=== PATIENT | female | born 1975 | race Caucasian/White ===

== ENCOUNTER 2019-09-25 16:27 | Observation (INO) ==
[2019-09-25 16:44] VITALS: BMI 20.5
[2019-09-25] MEDS ORDERED: NS 1000 ML 1,000 ML ONE ×2 (16:45→19:27)
[2019-09-25] MEDS ORDERED: NS 1000 ML 1,000 ML IV ONE ×2 (16:45→19:26)
[2019-09-25] MEDS: ZOFRAN INJ 4 MG VIAL IVP ONE ×2 (16:45→18:45)
[2019-09-25] MEDS ORDERED: ZOFRAN INJ 4 MG VIAL ONE ×2 (16:48→18:31)
--- NOTE | 2019-09-25 17:20 | DR.DIZZY ---
HPI Time seen Time Seen by Provider: 09/25/19 17:16 PCP Primary Care Physician: Randall Foster HPI Comment HPI Comment: PATIENT IS 44YR OLG FEMALE HERE IN ER WITH DIARRHEA, WEAKNESS, FEVER AND POSITIVE TEST. Complaint Chief Complaint Doctor Comments: ABDOMINAL PAIN, DIARRHEA, FEVER, GENERALIZED WEAKNESS. POSITIVE COVID TEST. Chief Complaint:: syncopal episode, COVID +, vomiting, diarrhea COVID-19 Coronavirus risk:travel/contact w/high risk person: Yes Has patient experienced Coronavirus symptoms: Yes Coronavirus symptoms experienced: Fever, Coughing and Shortness of Breath Source History Provided: Patient Mode of Arrival Mode of Arrival: Ambulatory Timing Onset of Chief Complaint: 09/25/19 PMH PMH Past Medical History: Yes Past Medical History: Kidney Stones Past Surgical History: Yes Surgical History: Cholecystectomy, Hysterectomy and Lithotripsy Family History History of Family Medical Conditions: Yes Family Medical History: Diabetes Mellitus, Cancer, Coronary Artery Disease, Sudden Cardiac and Hypertension Social History Do you use any recreational Drugs:: No Travel Risk Coronavirus risk:travel/contact w/high risk person: Yes Has patient experienced Coronavirus symptoms: Yes Coronavirus symptoms experienced: Fever, Coughing and Shortness of Breath Infectious screening In the last 2 months have you had wt loss of >10#?: NO Have you had fever, night sweats or hemotysis?: No Have you traveled outside the country in the last 6 months?: No Isolation: Droplet ROS Review of Systems Constitutional: See HPI, Chills, Fever, Malaise, Weakness and Fatigue Eyes: No Symptoms Reported and See HPI; negative Blurred Vision and Diplopia ENTM: No Symptoms Reported and See HPI; negative Ear Pain, Nose Pain, Nose Discharge, Nose Congestion, Mouth Pain and Throat Pain Respiratoy: See HPI, Short of Breath and Wheezing; negative Moist Cough Cardiovascular: See HPI and Palpitations; negative Edema Gastrointestinal/Abdominal: See HPI, Diarrhea, Nausea and Vomiting Genitourinary: No Symptoms Reported and See HPI; negative Dysuria, Frequency and Hematuria Neurological: See HPI, Headache and Weakness; negative Dizziness Musculoskeletal: See HPI, Back Pain and Muscle Pain Integumentary: See HPI and Dryness; negative Change in Color, Rash and Juandice Hematologic/Lymphatic: No Symptoms Reported and See HPI; negative Easy Bruising and Swollen Glands Endocrine: No Symptoms Reported, See HPI and Increased Thirst; negative Increased Urine and Decreased Appetite Psychiatric: No Symptoms Reported and See HPI All Other Systems: Reviewed and Negative PE Vital Signs Vitals: Temperature 98 F Pulse Rate 86 Respiratory Rate 18 Blood Pressure 115/63 O2 Sat by Pulse Oximetry 100 General Limitations: No Limitations General Appearance: Alert and In No Apparent Distress Head Head Exam: Normal Inspection Eyes Eye exam: Normal Appearance and PERRL; negative Scleral Icterus and Conjunctival Injection Pupils: Regular, Round: Bilateral and Reactive: Bilateral Sclera/Conjunctival: Normal Inspection: Bilateral ENT ENT Exam: Normal Exam, Normal Oropharynx, Normal External Ear Exam and TM's Normal Bilaterally Neck Neck Exam: Normal Inspection, Full ROM and Trachea Midline; negative Tenderness and Lymphadenopathy Chest Chest Inspection: Normal Inspection and Symmetric Chest Wall Rise; negative Tenderness Respiratory Respiratory Exam: Respiratory Distress; negative Accessory Muscle Use and Chest Wall Tenderness Respiratory Exam: Bilateral: Clear to Auscultation Cardiovascular Cardiovascular Exam: Regular Rate, Normal Rhythm and Normal Heart Sounds; negative Systolic Murmur and Diastolic Murmur Abdominal Exam Abdominal Exam: Normal Bowel Sounds, Soft and Tenderness Rectal Rectal Exam: Deferred Extremeties Extremities Exam: Normal Inspection and Normal Capillary Refill; negative Te nderness, Edema and Calf Tenderness Back Back Exam: Paraspinal Tenderness; negative (R) CVA Tenderness and (L) CVA Tenderness Neurologic Neurological Exam: Alert, Oriented X3 and CN II-XII Intact; negative Motor Sensory Deficit Patient Oriented To: Person, Place and Time Speech: Fluid Speech Motor Strength - LUE: 5/5 Motor Strength - RUE: 5/5 Motor Strength - LLE: 5/5 Motor Strength - RLE: 5/5 Upper Motor Neuron Exam: Babinski Sign: Normal Psychiatric Psychiatric Exam: Normal Affect and Normal Mood Skin Skin Exam: Dry MDM Additional Information Obtained Additional Information Obtained From: Family Differential Diagnosis Differential Diagnosis: Anemia, CVA, Dehydration, Dysrhythmia, Electrolyte disorder, Hypoglycemia, Labyrinthitis, Myasthenia gravis, Myocardial infarction, Pulmonary embolus, TIA and Central Vertigo COURSE Treatment Treatment: SEE ORDERS. Education/Counseling Education/Counseling: Patient Educated On: Diagnosis ROR Labs Reviewed Laboratory Results Reviewed?: Yes Result Diagrams: 09/25/19 17:19 09/25/19 17:19 Laboratory: 09/25/19 21:57 Stool - Final WBC 11.2 X10^3/uL (3.6-10.0) H 09/25/19 17:19 RBC 5.22 X10^6/uL (3.5-5.4) 09/25/19 17:19 Hgb 15.0 g/dL (12.0-16.0) 09/25/19 17:19 Hct 43.4 % (36.0-47.0) 09/25/19 17:19 MCV 83.3 fL (80.0-100.0) 09/25/19 17:19 MCH 28.7 pg (27.0-34.0) 09/25/19 17:19 MCHC 34.5 g/dL (33.0-35.0) 09/25/19 17:19 RDW 12.6 % (11.6-16.5) 09/25/19 17:19 Plt Count 239 X10^3/uL (150.0-450.0) 09/25/19 17:19 MPV 10.5 fL (7.4-11.0) 09/25/19 17:19 Neut % (Auto) 75.1 % (42.0-75.0) H 09/25/19 17:19 Lymph % (Auto) 16.7 % (21.0-51.0) L 09/25/19 17:19 [place] % (Auto) 5.1 % (0.0-13.0) 09/25/19 17:19 Eos % (Auto) 2.4 % (0.9-2.9) 09/25/19 17:19 Baso % (Auto) 0.7 % (0.2-1.0) 09/25/19 17:19 Neut # (Auto) 8.4 x10^3/uL (2.2-4.8) H 09/25/19 17:19 Lymph # (Auto) 1.9 X10^3/uL (1.3-2.9) 09/25/19 17:19 [place] # (Auto) 0.6 x10^3/uL (0.3-0.8) 09/25/19 17:19 Eos # (Auto) 0.3 x10^3/uL (0.0-0.2) H 09/25/19 17:19 Baso # (Auto) 0.1 X10^3/uL (0.0-0.1) 09/25/19 17:19 Absolute Nucleated RBC 0.0 /100WBC 09/25/19 17:19 D-Dimer 108 ng/mL (0-400) 09/25/19 17:19 Sample Site Rr 09/25/19 17:30 ABG pH 7.430 (7.35-7.45) 09/25/19 17:30 ABG pCO2 35.0 mmHg (35.0-45.0) 09/25/19 17:30 ABG pO2 87.0 mmHg (80.0-100.0) 09/25/19 17:30 ABG HCO3 23.2 mmol/L (22-26) 09/25/19 17:30 ABG O2 Saturation 97.0 % (90-100) 09/25/19 17:30 ABG Base Excess -0.7 mmol/L (-2.0-2.0) 09/25/19 17:30 Reese Test Pos 09/25/19 17:30 A-a Gradient 19.0 mmHg 09/25/19 17:30 FiO2 21.0 09/25/19 17:30 Blood Gas Comments Pt [email or web address] 09/25/19 17:30 Sodium 139 mmol/L (136-145) 09/25/19 17:19 Corrected Sodium 139 mmol/L (136-145) 09/25/19 17:19 Potassium 3.2 mmol/L (3.5-5.1) L 09/25/19 17:19 Chloride 104 mmol/L (98-107) 09/25/19 17:19 Carbon Dioxide 24.8 mmol/L (21-32) 09/25/19 17:19 BUN 18 mg/dL (7-18) 09/25/19 17:19 Creatinine 1.44 mg/dL (0.55-1.02) H 09/25/19 17:19 Est GFR (MDRD) Af Amer 50 (>60) L 09/25/19 17:19 Est GFR (MDRD) Non-Af 42 (>60) L 09/25/19 17:19 Glucose 115 mg/dL (65-99) H 09/25/19 17:19 Lactic Acid 1.2 mmol/L (0.4-2.0) 09/25/19 17:19 Calcium 9.0 mg/dL (8.5-10.1) 09/25/19 17:19 Corrected Calcium TNP 09/25/19 17:19 Ferritin 166 ng/mL (8-252) 09/25/19 17:19 Total Bilirubin 0.30 mg/dL (0.2-1.0) 09/25/19 17:19 AST 16 Units/L (15-37) 09/25/19 17:19 ALT 29 Units/L (12-78) 09/25/19 17:19 Alkaline Phosphatase 92 Units/L (46-116) 09/25/19 17:19 Lactate Dehydrogenase 143 Units/L (81-234) 09/25/19 17:19 Creatine Kinase 31 Units/L (26-192) 09/25/19 21:34 CK-MB (CK-2) < 1.0 ng/mL (0-4.0) 09/25/19 21:34 CK/CKMB % Calc 3.2 % (<4) 09/25/19 21:34 Troponin I < 0.02 ng/mL (0-1.5) 09/25/19 21:34 C-Reactive Protein < 0.50 mg/L (0-3.0) 09/25/19 17:19 Total Protein 7.2 g/dL (6.4-8.2) 09/25/19 17:19 Albumin 3.5 g/dL (3.4-5.0) 09/25/19 17:19 Globulin 3.7 g/dL (2.5-4.5) 09/25/19 17:19 Albumin/Globulin Ratio 0.9 Ratio (1.1-2.1) L 09/25/19 17:19 Specimen Type Clean catch urine 09/25/19 17:10 Urine Color Yellow (YELLOW) 09/25/19 17:10 Urine Appearance Hazy (CLEAR) 09/25/19 17:10 Urine pH 5.0 (5.0 - 8.0) 09/25/19 17:10 Ur Specific [place] 1.025 (1.000-1.030) 09/25/19 17:10 Urine Protein 1+ (NEGATIVE) 09/25/19 17:10 Urine Glucose (UA) Negative (NEGATIVE) 09/25/19 17:10 Urine Ketones Negative (NEGATIVE) 09/25/19 17:10 Urine Occult Blood 2+ (NEGATIVE) 09/25/19 17:10 Urine Nitrite Negative (NEGATIVE) 09/25/19 17:10 Urine Bilirubin Negative (NEGATIVE) 09/25/19 17:10 Urine Urobilinogen Normal (NORMAL) 09/25/19 17:10 Ur Leukocyte Esterase 2+ (NEGATIVE) 09/25/19 17:10 Urine RBC 3-5 /HPF (0-3) A 09/25/19 17:10 Urine WBC 3-5 /HPF (0-5) 09/25/19 17:10 Ur Squamous Epith Cells Many /HPF (NEGATIVE) 09/25/19 17:10 Urine Bacteria 1+ /HPF (NEGATIVE) 09/25/19 17:10 Ur Culture Indicated? No/not indicated 09/25/19 17:10 Stool Description 60 g. [place]/liquid 09/25/19 21:57 Stool Description 60 g. [place]/liquid 09/25/19 21:57 Stl Occult Blood (IFOB) Positive (NEGATIVE) A 09/25/19 21:57 Stool for White Cells Positive (NEGATIVE) A 09/25/19 21:57 Stl C. diff Tox B Gene Negative (NEGATIVE) 09/25/19 21:57 Stl C. diff [id number]-[id number] Negative (NEGATIVE) 09/25/19 21:57 Stool H. pylori Ag Negative (NEGATIVE) 09/25/19 21:57 Cryptosporid parvum Ag Negative (NEGATIVE) 09/25/19 21:57 Giardia lamblia Ag Negative (NEGATIVE) 09/25/19 21:57 SARS-CoV-2 (PCR) Negative (NEGATIVE) 09/25/19 21:16 XRAY XRAY Interpreted by: Radiologist (REPORT NOTED AND DISCUSSED WITH PATIENT.) and Self EKG Rate: 92 [place]: Normal Rhythm: NSR Block: None Hypertrophy: None ST: Normal Opioid Opioid Risk Tool Age (Josue box if 16-45): No History of Preadolescent Sexual Abuse: No Total: 0 Total Score Risk Category: Low Risk Copyright: Zak JARAMILLO predicting aberrant behaviors Diagnosis Discharge Problem: Syncopal episodes, Acute dehydration, Campylobacter diarrhea, Generalized weakness, Hypokalemia Instructions Forms: Excuse From Work Precautions for COVID19 Patient Portal Social Distancing
[2019-09-25] MEDS ORDERED: PEPCID 20 MG IV PREMIX* 20 MG/50 ML BAG IV ONE ×2 (17:30→17:34)
[2019-09-25] MEDS ORDERED: TORADOL 30 MG VIAL ONE (17:34)
[2019-09-25] MEDS ORDERED: TORADOL 30 MG VIAL IVP ONE (17:35)
[2019-09-25 17:38] LABS: BILIRUBIN,URINE NEGATIVE (NEGATIVE); BLOOD/HEMOGLOBIN,URINE 2+ (NEGATIVE); GLUCOSE, URINE NEGATIVE (NEGATIVE); KETONES,URINE NEGATIVE (NEGATIVE); LEUKOCYTE ESTERASE ,URINE 2+ (NEGATIVE); NITRITES,URINE NEGATIVE (NEGATIVE); PROTEIN,URINE 1+ (NEGATIVE); UROBILINOGEN,URINE NORMAL (NORMAL)
[2019-09-25 17:45] LABS: ABG ALLEN TEST POS; ABG BASE EXCESS -0.7 mmol/L (-2.0-2.0); ABG HCO3 23.2 mmol/L (22-26)
[2019-09-25 17:48] LABS: APPEARANCE,URINE HAZY (CLEAR); BACTERIA,URINE 1+ /HPF (NEGATIVE); COLOR,URINE YELLOW (YELLOW); SQUAMOUS EPITHELIAL CELL,UR MANY /HPF (NEGATIVE)
[2019-09-25 17:53] LABS: BASOPHILS # (AUTO) 0.1 X10^3/uL (0.0-0.1); BASOPHILS % (AUTO) 0.7 % (0.2-1.0); EOSINOPHILS # (AUTO) 0.3 x10^3/uL (0.0-0.2); EOSINOPHILS % (AUTO) 2.4 % (0.9-2.9); HEMATOCRIT 43.4 % (36.0-47.0); LYMPHOCYTES # (AUTO) 1.9 X10^3/uL (1.3-2.9); LYMPHOCYTES % (AUTO) 16.7 % (21.0-51.0); MEAN CORPUSCULAR HEMOGLOBIN 28.7 pg (27.0-34.0); MEAN CORPUSCULAR HGB CONC 34.5 g/dL (33.0-35.0); MEAN CORPUSCULAR VOLUME 83.3 fL (80.0-100.0); MEAN PLATELET VOLUME 10.5 fL (7.4-11.0); MONOCYTES # (AUTO) 0.6 x10^3/uL (0.3-0.8); MONOCYTES % (AUTO) 5.1 % (0.0-13.0); NEUTROPHILS # (AUTO) 8.4 x10^3/uL (2.2-4.8); NEUTROPHILS % (AUTO) 75.1 % (42.0-75.0); PLATELET COUNT 239 X10^3/uL (150.0-450.0); RED BLOOD COUNT 5.22 X10^6/uL (3.5-5.4); RED CELL DISTRIBUTION WIDTH 12.6 % (11.6-16.5); WHITE BLOOD COUNT 11.2 X10^3/uL (3.6-10.0)
[2019-09-25 18:04] LABS: ALANINE AMINOTRANSFERASE 29 Units/L (12-78); ALBUMIN 3.5 g/dL (3.4-5.0); ALKALINE PHOSPHATASE 92 Units/L (46-116); ASPARTATE AMINO TRANSFERASE 16 Units/L (15-37); BLOOD UREA NITROGEN 18 mg/dL (7-18); CARBON DIOXIDE 24.8 mmol/L (21-32); CHLORIDE 104 mmol/L (98-107); COR NA(FOR HYPERGLY) 139 mmol/L (136-145); CREATININE 1.44 mg/dL (0.55-1.02); SODIUM 139 mmol/L (136-145); TOTAL PROTEIN 7.2 g/dL (6.4-8.2); eGFR NON BLACK RACES 42 (>60)
[2019-09-25 18:19] LABS: CKMB % 2.9 % (<4); CREATINE KINASE 35 Units/L (26-192); CREATINE KINASE MB < 1.0 ng/mL (0-4.0); LACTATE DEHYDROGENASE 143 Units/L (81-234); TROPONIN I < 0.02 ng/mL (0-1.5)
[2019-09-25 18:26] LABS: LACTIC ACID 1.2 mmol/L (0.4-2.0)
[2019-09-25] MEDS ORDERED: DEMEROL INJ IVP ONE (18:29)
[2019-09-25] MEDS ORDERED: DEMEROL INJ ONE ×2 (18:31→21:59)
--- NOTE | 2019-09-25 18:45 | RAD ---
HISTORYPneumoniaSTUDYCHEST, 1 VIEWCOMPARISONNoneTECHNIQUEPortable chest x-rayFINDINGSHeart size and mediastinal contours are normal. Lungs are clear as are the pleural spaces. No free air or pneumothorax. No acute bony abonormality.IMPRESSIONNo acute radiographic abnormalities of the chest.Electronically signed by: LISA GRANT (Sep 25, 2019 18:44:44)
--- NOTE | 2019-09-25 19:14 | CT ---
HISTORYPT FELL AND HIT HEADSTUDYCT HEAD WITHOUT CONTRASTCOMPARISONNoneTECHNIQUEAxial CT of the head is performed from the base of the skull through the vertex WITHOUT contrast . Multiplaner reformats are generated from the original axial data.FINDINGSThere is no acute intracranial hemorrhage or extra-axial hematoma. There is no mass effect, shift or evidence of cerebral edema. The ventricular size is normal. Cortical tellez-white matter differentiation is maintained without sulcal effacement. There is no evidence of an acute infarct. The imaged paranasal sinuses are remarkable for mild mucosal thickening scattered within the ethmoid air cells and dependent right maxillary sinus. The mastoid air cells are clear. No air-fluid levels are identified. There is no extracalvarial scalp hematoma or acute skull fracture identified.IMPRESSIONNo acute intracranial abnormalities.Radiation dose reduction was achieved through individualized adjustment of kVP and/or mA, through adaptive statistical iterative reconstruction, and/or through automated tube current modulation.Electronically signed by: LISA GRANT (Sep 25, 2019 19:13:51)
--- NOTE | 2019-09-25 19:39 | RAD ---
HISTORYFALL, PT C/O LFT KNEE PAINSTUDYKNEE COMPLETE, LEFTCOMPARISONNoneLeft knee with three viewsFINDINGSLeft knee is anatomically aligned on three views without fracture. Minimal suprapatellar effusion is observed. The joint spaces are fairly well maintained. No erosions are identified. Minor osteoarthritic changes are associated with the medial compartment and patellofemoral space.IMPRESSIONMinor osteoarthritic changes of the left knee with trace effusion.No acute abnormalities identifiedIf there is clinical concern for occult internal knee derangement, follow-up MRI is recommended.Electronically signed by: LISA GRANT (Sep 25, 2019 19:38:59)
[2019-09-25] MEDS ORDERED: PHENERGAN INJ 25 MG IM ONE ×2 (21:58→21:59)
[2019-09-25 22:01] LABS: CKMB % 3.2 % (<4); CREATINE KINASE 31 Units/L (26-192); CREATINE KINASE MB < 1.0 ng/mL (0-4.0); TROPONIN I < 0.02 ng/mL (0-1.5)
[2019-09-25] MEDS: DEMEROL INJ IVP PRN ×2 (22:05→22:08)
[2019-09-25 22:49] LABS: CRYPTOSPORIDIUM PARVUM ANTIGEN NEGATIVE (NEGATIVE); GIARDIA LAMBLIA ANTIGEN NEGATIVE (NEGATIVE)
--- NOTE | 2019-09-25 23:03 | CT ---
HISTORYPossible Covid; requested by physicians of facility the patient is being transferred toSTUDTA CHESTCOMPARISONNoneTECHNIQUEMultiple axial images of the chest were obtained from the thoracic inlet to the upper abdomen after the administration of IV contrast. 3D reconstructions utilizing axial MIPS imaging was performed and reviewed. Dose reduction techniques including Automated Exposure Control (AEC) and adjustment of mA and kV were utilized.FINDINGSThe mediastinum does not demonstrate significant pathological lymphadenopathy. There is no paracardial effusion observed. The thoracic aorta is normal in its contour without evidence for aneurysmal dilatation. The central pulmonary arterial system does not demonstrate central filling defects to suggest pulmonary emboli.Evaluation of the lung parenchyma fails to demonstrate focal consolidation or effusion . No pulmonary nodule or mass can be identified. The bony thorax is unremarkable in its appearance . The visualized portions of the upper abdomen are grossly unremarkable .IMPRESSIONUnremarkable CTA of the chest.Electronically signed by: Remington Powers (Sep 25, 2019 23:02:36)
[2019-09-25] MEDS ORDERED: ZITHROMAX INJ 500 MG VIAL 500 MG in NS 250 ML IV 250 ML IV SCH (23:49)
[2019-09-25] MEDS ORDERED: ZITHROMAX INJ 500 MG VIAL IV ONE (23:51)
[2019-09-25] MEDS ORDERED: NS 250 ML IV 250 ML IV ONE (23:52)
[2019-09-26] MEDS ORDERED: NS + KCL 20 MEQ/L 1,000 ML IV ONE ×2 (00:03→04:08)
[2019-09-26] MEDS ORDERED: NS + KCL 20 MEQ/L 1,000 ML IV SCH (01:00)
[2019-09-26] MEDS ORDERED: COMPAZINE INJ IM ONE (01:42)
[2019-09-26] MEDS ORDERED: COMPAZINE INJ ONE (01:43)
[2019-09-26] MEDS ORDERED: DEMEROL INJ ONE (01:43)
[2019-09-26] MEDS: DEMEROL INJ IVP PRN ×4 (01:49→21:29)
[2019-09-26] MEDS ORDERED: TYLENOL 325 MG TAB PO PRN (03:57)
[2019-09-26] MEDS ORDERED: PEPCID 20 MG IV PREMIX* 20 MG/50 ML BAG IV PRN (04:02)
[2019-09-26] MEDS ORDERED: DEMEROL INJ IVP PRN (04:07)
[2019-09-26] MEDS ORDERED: ZITHROMAX INJ 500 MG VIAL 500 MG in NS 250 ML IV 250 ML IV SCH (04:14)
[2019-09-26] MEDS: NS + KCL 20 MEQ/L 1,000 ML IV SCH ×2 (04:15→16:30)
[2019-09-26 06:38] LABS: BASOPHILS # (AUTO) 0.1 X10^3/uL (0.0-0.1); BASOPHILS % (AUTO) 0.7 % (0.2-1.0); EOSINOPHILS # (AUTO) 0.5 x10^3/uL (0.0-0.2); EOSINOPHILS % (AUTO) 5.2 % (0.9-2.9); HEMATOCRIT 34.3 % (36.0-47.0); HEMOGLOBIN 11.9 g/dL (12.0-16.0); LYMPHOCYTES # (AUTO) 2.4 X10^3/uL (1.3-2.9); MEAN CORPUSCULAR HEMOGLOBIN 29.3 pg (27.0-34.0); MEAN CORPUSCULAR HGB CONC 34.5 g/dL (33.0-35.0); MEAN CORPUSCULAR VOLUME 84.9 fL (80.0-100.0); MEAN PLATELET VOLUME 10.1 fL (7.4-11.0); MONOCYTES # (AUTO) 0.5 x10^3/uL (0.3-0.8); MONOCYTES % (AUTO) 5.9 % (0.0-13.0); NEUTROPHILS # (AUTO) 5.8 x10^3/uL (2.2-4.8); NEUTROPHILS % (AUTO) 62.2 % (42.0-75.0); PLATELET COUNT 176 X10^3/uL (150.0-450.0); RED BLOOD COUNT 4.04 X10^6/uL (3.5-5.4); RED CELL DISTRIBUTION WIDTH 12.5 % (11.6-16.5); WHITE BLOOD COUNT 9.3 X10^3/uL (3.6-10.0)
[2019-09-26 06:47] LABS: ALANINE AMINOTRANSFERASE 20 Units/L (12-78); ALBUMIN 2.5 g/dL (3.4-5.0); ALKALINE PHOSPHATASE 65 Units/L (46-116); ASPARTATE AMINO TRANSFERASE 12 Units/L (15-37); BLOOD UREA NITROGEN 14 mg/dL (7-18); CALCIUM 7.3 mg/dL (8.5-10.1); CARBON DIOXIDE 21.1 mmol/L (21-32); CHLORIDE 111 mmol/L (98-107); COR CA(FOR HYPOALB) 8.5 mg/dL (8.5-10.1); CREATININE 1.15 mg/dL (0.55-1.02); SODIUM 140 mmol/L (136-145); TOTAL PROTEIN 5.2 g/dL (6.4-8.2); eGFR NON BLACK RACES 54 (>60)
[2019-09-26] MEDS ORDERED: TORADOL 30 MG VIAL IVP PRN (10:01)
[2019-09-26] MEDS ORDERED: NS 1000 ML 1,000 ML IV ONE (10:30)
[2019-09-26] MEDS ORDERED: TORADOL 30 MG VIAL ONE (10:31)
[2019-09-26] MEDS ORDERED: PROTONIX INJ 40 MG VIAL ONE (10:31)
[2019-09-26] MEDS ORDERED: NS 1000 ML 1,000 ML ONE ×2 (10:32→12:16)
[2019-09-26] MEDS: PROTONIX INJ 40 MG VIAL IVP SCH ×2 (10:43→20:55)
[2019-09-26] MEDS: DEMEROL INJ ONE ×2 (12:37→12:39)
[2019-09-26] MEDS: NS 1000 ML 1,000 ML IV ONE ×2 (12:40→16:14)
[2019-09-26] MEDS: PHENERGAN INJ 25 MG IM PRN ×2 (13:40→21:32)
[2019-09-26] MEDS ORDERED: ROBITUSSIN DM ONE (16:48)
[2019-09-26] MEDS: ROBITUSSIN DM PO PRN (17:01)
[2019-09-27] MEDS: NS + KCL 20 MEQ/L 1,000 ML IV SCH ×2 (02:08→06:42)
[2019-09-27] MEDS ORDERED: ZITHROMAX INJ 500 MG VIAL 500 MG in NS 250 ML IV 250 ML IV SCH (04:00)
[2019-09-27] MEDS: PHENERGAN INJ 25 MG IM PRN ×2 (04:45→10:49)
[2019-09-27 06:01] LABS: ALANINE AMINOTRANSFERASE 20 Units/L (12-78); ALBUMIN 2.2 g/dL (3.4-5.0); ALKALINE PHOSPHATASE 62 Units/L (46-116); ASPARTATE AMINO TRANSFERASE 16 Units/L (15-37); BLOOD UREA NITROGEN 9 mg/dL (7-18); CALCIUM 7.2 mg/dL (8.5-10.1); CARBON DIOXIDE 21.5 mmol/L (21-32); CHLORIDE 113 mmol/L (98-107); COR CA(FOR HYPOALB) 8.6 mg/dL (8.5-10.1); SODIUM 142 mmol/L (136-145); TOTAL PROTEIN 4.7 g/dL (6.4-8.2); eGFR NON BLACK RACES > 60 (>60)
[2019-09-27 06:10] LABS: BASOPHILS % (AUTO) 0.6 % (0.2-1.0); EOSINOPHILS # (AUTO) 0.4 x10^3/uL (0.0-0.2); EOSINOPHILS % (AUTO) 5.9 % (0.9-2.9); HEMATOCRIT 32.9 % (36.0-47.0); HEMOGLOBIN 11.4 g/dL (12.0-16.0); LYMPHOCYTES # (AUTO) 1.5 X10^3/uL (1.3-2.9); LYMPHOCYTES % (AUTO) 19.8 % (21.0-51.0); MEAN CORPUSCULAR HEMOGLOBIN 29.7 pg (27.0-34.0); MEAN CORPUSCULAR HGB CONC 34.7 g/dL (33.0-35.0); MEAN CORPUSCULAR VOLUME 85.7 fL (80.0-100.0); MEAN PLATELET VOLUME 9.9 fL (7.4-11.0); MONOCYTES # (AUTO) 0.3 x10^3/uL (0.3-0.8); MONOCYTES % (AUTO) 4.3 % (0.0-13.0); NEUTROPHILS # (AUTO) 5.2 x10^3/uL (2.2-4.8); NEUTROPHILS % (AUTO) 69.4 % (42.0-75.0); PLATELET COUNT 146 X10^3/uL (150.0-450.0); RED BLOOD COUNT 3.84 X10^6/uL (3.5-5.4); RED CELL DISTRIBUTION WIDTH 12.2 % (11.6-16.5); WHITE BLOOD COUNT 7.5 X10^3/uL (3.6-10.0)
[2019-09-27] MEDS: DEMEROL INJ IVP PRN (06:21)
[2019-09-27] MEDS: PROTONIX INJ 40 MG VIAL IVP SCH (08:41)
[2019-09-27] MEDS: ROBITUSSIN DM PO PRN (11:59)
[2019-09-27 12:08] VITALS: BP 111/62
--- NOTE | 2019-09-27 21:17 | DR.H&P ---
H&P - History & Physical for Day of: H&P Date: 09/26/19 - Chief Complaint Chief Complaint: ABDOMINAL PAIN, DIARRHEA, FEVER, COUGH, SOB, DIZZINESS, AND GENERALIZED WEAKNESS. - History of Present Illness History of Present Illness: IS A 44 YEAR OLD PATIENT OF [facility]. SHE PRESENTED TO THE ER WITH COMPLAINTS OF ABDOMINAL PAIN, DIARRHEA, FEVER, COUGH, SOB, DIZZINESS, AND GENERALIZED WEAKNESS. SHE REPORTED TESTING POSITIVE FOR COVID-19, HOWEVER, WHEN WE CALLED TO CONFIRM RESULTS, WE WERE INFORMED THAT THERE WAS MISCOMMUNICATION AND THAT PATIENT IS NEGATIVE. SYPTOMS REPORTEDLY STARTED 3-4 DAYS PRIOR. ABDOMINAL PAIN IS DESCRIBED CRAMPING AND IS RATED 6/10. HER PMH INCLUDES: KIDNEY STONES, CHOLECYSTECTOMY, HYSTERECTOMY, AND LITHOTRIPSY. ON ARRIVAL TO THE ER, VITALS WERE 98.0-135-20-97%-148/83. LABS WERE OBTAINED. ABNORMAL LAB VALUES INCLUDE THE FOLLOWING: WBC 11.2, POTASSIUM 3.2, CREATININE KINASE 1.44, GLUCOSE 115. CARDIAC ENZYMES WERE WITHIN NORMAL LIMITS. A URINALYSIS WAS OBTAINED AND REVEALED: WBC 3-5, RBC 3-5, LEUKOCYTES 2+, BACTERIA 1+. STOOL IS POSITIVE FOR OCCULT BLOOD, WHITE CELLS, AND CAMPYLOBACTER. A STOOL CULTURE WAS SET UP. SHE IS NEGATIVE FOR COVID-19. BLOOD CULTURES WERE ALSO SET UP. A CHEST XRAY WAS OBTAINED AND REVEALED: No acute radiographic abnormalities of the chest. EKG REVEALED: SINUS RHYTHM WITH HR 99. A CHEST CTA WAS OBTAINED AND REVEALED: UNREMARKABLE CTA OF THE CHEST. WHILE AMBULATING TO THE BATHROOM IN THE ER, PATIENT BECAME DIZZY AND THEN HAD A SYNCOPAL EPISODE. SHE HIT HER HEAD ON THE FLOOR AND ALSO COMPLAINTED OF LEFT KNEE PAIN. A BRAIN CT WAS OBTAINED AND IS NEGATIVE FOR ACUTE INTRACRANIAL ABNORMALITY. LEFT KNEE XRAY IS ALSO NEGATIVE. SHE WAS GIVEN SEVERAL NORMAL SALINE BOLUSES IN THE ER, PEPCID 20MG IV X 1, TORADOL 30MG IV X 1, DEMEROL 50MG IV X 1, ZITHROMAX 500MG IV X 1, ZOFRAN 4MG IV X 1, AND PHENERGAN 25MG IM X 1. SHE REPORTED ONLY SLIGHT IMPROVEMENT IN SYMPTOMS. SHE WAS ADMITTED TO THE HOSPITAL FOR FURTHER EVALUATION AND TREATMENT OF SYNCOPE, DEHYDRATION, AND CAMPYLOBACTER DIARRHEA. SHE WAS STARTED ON NORMAL SALINE WITH 20MEQ KCL AT 125ML/HR, CIPRO 400MG IV BID, DEMEROL 25MG IV Q4H PRN PAIN, PHENERGAN 25MG IM Q6H PRN, TORADOL 30MG IV Q6H PRN PAIN, PROTONIX 40MG IV BID, PEPCID 20MG IV BID. WE WILL REVIEW HER HOME MEDICATIONS. OTHERWISE, WE WILL FOLLOW UP WITH AM LABS AND CONTINUE TO MONITOR. TIME SPEND WITH PATIENT ON EXAMINATION, REVIEWING CHART, COUNSELING, AND PLAN OF CARE GREATER THAN 70 MINUTES. - Past Medical History Past Medical History: Kidney Stones - Past Surgical History Surgical History: Cholecystectomy, Hysterectomy - Family History Family Medical History: Diabetes Mellitus, Cancer, Coronary Artery Disease, Sudden Cardiac , Hypertension - Social History Does patient currently use any type of tobacco product: No Have you used tobacco products in the last 12 months: No Type of Tobacco Use: None Alcohol Use: Occasionally Drug Use: None - Medications Home Medications: pudding Allergy (Uncoded 11/24/13 12:51) CONTINUE taking the following medications hydrochlorothiazide 25 mg PO DAILY 09/26/19 [History] thyroid (pork) [[place] Thyroid] 120 mg PO DAILY 09/26/19 [History] tizanidine 4 mg PO TID PRN 09/26/19 [History] New Prescriptions benzonatate [Tessalon Perles] 200 mg PO TID #42 cap 09/27/19 [Rx] ciprofloxacin 500 mg PO BID 140 Days #140 ml 09/27/19 [Rx] hydrocodone-chlorpheniramine 5 ml PO Q12H PRN #150 ml MDD 10 09/27/19 [Rx] promethazine 25 mg PO Q6H PRN #30 tab 09/27/19 [Rx] - Review of Systems Constitutional: See HPI, Fever, Weakness Eyes: No Symptoms Reported ENT: No Symptoms Reported Respiratory: Cough, Shortness of Breath Cardiovascular: No Symptoms Reported Gastrointestinal: See HPI, Nausea, Vomiting, Abdominal Pain, Diarrhea Genitourinary: No Symptoms Reported Musculoskeletal: No Symptoms Reported Skin: No Symptoms Reported Neurological: Weakness - Physical Exam Vital Signs: Temperature 97.8 F Pulse Rate [Left Brachial] 94 Pulse Rate 78 Respiratory Rate 20 Blood Pressure [Left Arm] 111/62 Blood Pressure 115/63 O2 Sat by Pulse Oximetry 100 Oriented: Normal Eyes: Normal Ear: Normal Nose: Normal Throat: Normal Respiratory: Diminished Throughout Cardiovascular: Tachycardia : Normal Palpation: Normal Tenderness: Diffuse, Moderate Skin: Decreased [place] Musculoskeletal: Normal Mood Description: Calm Affect: Normal Speech Pattern: Clear - Assessment/Plan (1) Acute dehydration Status: Acute Plan: ADMIT, NORMAL SALINE WITH 20MEQ KCL AT 125ML/HR, CIPRO 400MG IV BID, DEMEROL 25MG IV Q4H PRN PAIN, PHENERGAN 25MG IM Q6H PRN, TORADOL 30MG IV Q6H PRN PAIN, PROTONIX 40MG IV BID, PEPCID 20MG IV BID. WE WILL REVIEW HER HOME MEDICATIONS. (2) Campylobacter diarrhea Status: Acute (3) Syncopal episodes Status: Acute (4) Generalized weakness Status: Acute (5) Hypokalemia Status: Acute - Allergies Allergies/Adverse Reactions: Allergies Allergy/AdvReac Type Severity Reaction Status Date / Time pudding Allergy Uncoded 11/24/13 12:51
== END 2019-09-27 13:43 | disposition home or self-care (01) ==
LOC: ER 16:27 → OBS 16:27 → MED/SURG 09-26 12:35
PROVIDERS: ADMIT Internal Medicine; ATTEND Internal Medicine
DX: Z86.19 Personal history of other infectious and parasitic diseases; Y92.230 Patient room in hospital as the place of occurrence of the external cause; E87.6 Hypokalemia; S80.02XA Contusion of left knee, initial encounter; W19.XXXA Unspecified fall, initial encounter; A04.5 Campylobacter enteritis; Z11.59 Encounter for screening for other viral diseases; E86.0 Dehydration; R55 Syncope and collapse
CPT/HCPCS: 36415; 36600; 70450; 71010; 71045; 71275; 73564; 80053; 81001; 82270; 82550; 82553; 82728; 82803; 83605; 83615; 83630; 84484; 85025; 85378; 86140; 87040; 87045; 87328; 87329; 87338; 87427; 87449; 87493; 87635; 87899; 93005; 96365; 96367; 96374; 96375; 99284; A4222; C9113; G0378; J0456; J0780; J1885; J2175; J2405; J2550; J7030; J7050; S0028

== ENCOUNTER 2021-01-22 09:33 | Inpatient (IN) ==
[2021-01-22 09:50] VITALS: BMI 23.9
--- NOTE | 2021-01-22 09:59 | DR.GENAD ---
HPI Time Seen Time Seen by Provider: 01/22/21 09:55 PCP Primary Care Physician: LISETH Complaint/Symptoms Chief Complaint Doctors Comments: 45 y/o female presents for evaluation. Has been fighting low potassium, low blood pressure for some time. Got up at 0300, fell this am, hit her R forehead. No LOC or neck pain. Has a headache and low back pain. Had a fever yesterday, has had sinus congestion, no significant cough. Denies nausea, vomiting, diarrhea. Has been evaluated for hypokalemia. aking spironolactone at present. Patient with constant dull pain, does not radiate, worse with moving, nothing makes it better. Chief Complaint:: FELL AT HOME THIS MORNING AROUND 0300, HIT FOREHEAD. PT STATES SHE HAS FREQUENT FALLS AT HOME D/T HEART RACING, LOW BLOOD PRESSURE. HAVING ISSUES WITH HYPOKALEMIA X5 MONTHS AND HAS BEEN TREATING WITH MEDS AT HOME. Self Treatment fo Chief Complaint: HAS BEEN TAKING ALDACTONE X2 WKS D/T LOW POTASSIUM, BUT POTASSIUM CONT TO BE LOW. 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 AND TREATING POTASSIUM ISSUES COVID-19 Coronavirus risk:travel/contact w/high risk person: No Has patient experienced Coronavirus symptoms: No Nurses notes reviewed Nurses Notes Review: Yes Source History Provided: Patient Mode of Arrival Mode of Arrival: Wheelchair Timing Onset of Chief Complaint: 01/22/21 PMH PMH Past Medical History: Yes Past Medical History: Kidney Stones Past Medical History Comment: HYPOKALEMIA, LOW BLOOD PRESSURE, FREQ UTI'S, HYPERCALCEMIA Past Surgical History: Yes Surgical History: Hysterectomy Past Surgical History Comment: HRT Family History History of Family Medical Conditions: Yes Family Medical History: Diabetes Mellitus, [place] and Hypertension Social History Type of Tobacco Use: None Does any household member use tobacco: No Alcohol Use: Occasionally Do you use any recreational Drugs:: No Lives With: Dad and Spouse Lives Where: Home Infectious screening In the last 2 months have you had wt loss of >10#?: NO Have you had fever, night sweats or hemotysis?: No Have you traveled outside the country in the last 6 months?: No Isolation: Standard ROS Review of Systems Constitutional: Weakness Eyes: No Symptoms Reported ENTM: No Symptoms Reported Respiratoy: No Symptoms Reported Cardiovascular: No Symptoms Reported Gastrointestinal/Abdominal: No Symptoms Reported Genitourinary: No Symptoms Reported Neurological: Headache and Weakness Musculoskeletal: Back Pain and Muscle Pain Integumentary: No Symptoms Reported Hematologic/Lymphatic: No Symptoms Reported Endocrine: No Symptoms Reported Psychiatric: No Symptoms Reported All Other Systems: Reviewed and Negative PE Vital Signs Vitals: Temperature 98.0 F Pulse Rate 66 Respiratory Rate 13 Blood Pressure [Left Arm] 114/83 Blood Pressure 79/40 O2 Sat by Pulse Oximetry 98 General Limitations: No Limitations General Appearance: Alert Head Head Exam: Normal Inspection, Atraumatic and Normocephalic Eyes Eye exam: Normal Appearance, PERRL and EOMI ENT ENT Exam: Normal Exam Nose Exam: Normal Nose Exam Neck Neck Exam: Normal Inspection and Full ROM; negative Tenderness Chest Chest Inspection: Normal Inspection Respiratory Respiratory Exam: Normal Lung Sounds Bilat; negative Accessory Muscle Use and Respiratory Distress Respiratory Exam: Bilateral: Clear to Auscultation Cardiovascular Cardiovascular Exam: Regular Rate, Normal Rhythm and Normal Heart Sounds Abdominal Exam Abdominal Exam: Normal Inspection, Normal Bowel Sounds and Soft; negative Tenderness Extremities Extremities Exam: Normal Inspection and Full ROM; negative Tenderness Back Back Exam: Normal Inspection and Tenderness (right paralumbar region) Neurologic Neurological Exam: Alert, Oriented X3 and CN II-XII Intact; negative Motor Sensory Deficit Psychiatric Psychiatric Exam: Normal Affect and Normal Mood Skin Skin Exam: Warm and Dry MDM Differential Diagnosis Differential Diagnosis: hypotension, electrolyte abnormalities, head contusion, ICH COURSE Treatment Treatment: 45 y/o female has been fighting hypokalemia, hypotension for some time. Fell this am and hit her head. PE overall benign. BP low. W/u initiated. Given IV fluids, IV toradol. 1144 - pt in pain, from back/legs. BP still running low. K+ 2.6, Cr elevated to 4.5. Given additional IV fluids, IV potassium, and IV ativan. Will discuss with her covering MD about admitting, does have a glued wood tester in [place]. 1158 - discussed with Dr Hudson, will admit. 1230 - pt requested transfer to [facility], to have her glued wood tester involved. Transfer Center called. [facility] not accepting transfer. Discussed with her glued wood tester, Dr Louie, she is off today, recommended pt be admitted here, to hold the aldactone, continue fluid hydration. Pt requesting pain med, unfortunately systolic 80. ROR Labs Reviewed Laboratory Results Reviewed?: Yes Result Diagrams: 01/22/21 10:05 01/22/21 10:05 Laboratory: WBC 12.3 X10^3/uL (3.6-10.0) H 01/22/21 10:05 RBC 4.66 X10^6/uL (3.5-5.4) 01/22/21 10:05 Hgb 13.7 g/dL (12.0-16.0) 01/22/21 10:05 Hct 39.7 % (36.0-47.0) 01/22/21 10:05 MCV 85.2 fL (80.0-100.0) 01/22/21 10:05 MCH 29.5 pg (27.0-34.0) 01/22/21 10:05 MCHC 34.6 g/dL (33.0-35.0) 01/22/21 10:05 RDW 13.4 % (11.6-16.5) 01/22/21 10:05 Plt Count 174 X10^3/uL (150.0-450.0) 01/22/21 10:05 MPV 10.2 fL (7.4-11.0) 01/22/21 10:05 Neut % (Auto) 77.4 % (42.0-75.0) H 01/22/21 10:05 Lymph % (Auto) 14.9 % (21.0-51.0) L 01/22/21 10:05 [place] % (Auto) 5.9 % (0.0-13.0) 01/22/21 10:05 Eos % (Auto) 1.4 % (0.9-2.9) 01/22/21 10:05 Baso % (Auto) 0.4 % (0.2-1.0) 01/22/21 10:05 Neut # (Auto) 9.5 x10^3/uL (2.2-4.8) H 01/22/21 10:05 Lymph # (Auto) 1.8 X10^3/uL (1.3-2.9) 01/22/21 10:05 [place] # (Auto) 0.7 x10^3/uL (0.3-0.8) 01/22/21 10:05 Eos # (Auto) 0.2 x10^3/uL (0.0-0.2) 01/22/21 10:05 Baso # (Auto) 0.0 X10^3/uL (0.0-0.1) 01/22/21 10:05 Absolute Nucleated RBC 0.1 /100WBC 01/22/21 10:05 Sodium 142 mmol/L (136-145) 01/22/21 10:05 Corrected Sodium TNP 01/22/21 10:05 Potassium 2.6 mmol/L (3.5-5.1) L* 01/22/21 10:05 Chloride 104 mmol/L (98-107) 01/22/21 10:05 Carbon Dioxide 26.3 mmol/L (21-32) 01/22/21 10:05 BUN 21 mg/dL (7-18) H 01/22/21 10:05 Creatinine 4.51 mg/dL (0.55-1.02) H 01/22/21 10:05 Est GFR (MDRD) Af Amer 13 (>60) L 01/22/21 10:05 Est GFR (MDRD) Non-Af 11 (>60) L 01/22/21 10:05 Glucose 94 mg/dL (65-99) 01/22/21 10:05 Lactic Acid 1.1 mmol/L (0.4-2.0) 01/22/21 10:05 Calcium 8.2 mg/dL (8.5-10.1) L 01/22/21 10:05 Corrected Calcium 8.8 mg/dL (8.5-10.1) 01/22/21 10:05 Magnesium 1.8 mg/dL (1.7-2.9) 01/22/21 10:05 Total Bilirubin 0.50 mg/dL (0.2-1.0) 01/22/21 10:05 AST 20 Units/L (15-37) 01/22/21 10:05 ALT 85 Units/L (12-78) H 01/22/21 10:05 Alkaline Phosphatase 187 Units/L (46-116) H 01/22/21 10:05 Creatine Kinase 76 Units/L (26-192) 01/22/21 10:05 CK-MB (CK-2) < 1.0 ng/mL (0-4.0) 01/22/21 10:05 CK/CKMB % Calc 1.3 % (<4) 01/22/21 10:05 Troponin I < 0.02 ng/mL (0-1.5) 01/22/21 10:05 Total Protein 6.1 g/dL (6.4-8.2) L 01/22/21 10:05 Albumin 3.2 g/dL (3.4-5.0) L 01/22/21 10:05 Globulin 2.9 g/dL (2.5-4.5) 01/22/21 10:05 Albumin/Globulin Ratio 1.1 Ratio (1.1-2.1) 01/22/21 10:05 Lipase 107 Units/L (73-393) 01/22/21 10:05 SARS CoV-2 RNA Rapid LISA Negative (NEGATIVE) 01/22/21 12:12 Other Results Comments: Potassium low at 2.6, Cr elevated to 4.51, with an EGFR of 11. EKG Rate: 68 [place]: Normal Rhythm: NSR Block: IVCD ST: Nonsp Opioid Opioid Risk Tool Age (Josue box if 16-45): No History of Preadolescent Sexual Abuse: No Total: 0 Total Score Risk Category: Low Risk Copyright: Zak JARAMILLO predicting aberrant behaviors Diagnosis Discharge Problem: Acute nontraumatic kidney injury, Acute hypotension, Acute hypokalemia
[2021-01-22] MEDS ORDERED: NS 1,000 ML IV 1,000 ML IV ONE ×2 (10:04→11:42)
[2021-01-22] MEDS ORDERED: TORADOL 30 MG VIAL IVP ONE (10:11)
[2021-01-22] MEDS ORDERED: NS 1,000 ML IV 1,000 ML ONE ×2 (10:17→11:45)
[2021-01-22] MEDS ORDERED: TORADOL 30 MG VIAL ONE (10:17)
[2021-01-22] MEDS ORDERED: ZOFRAN INJ 4 MG VIAL ONE (10:38)
[2021-01-22 10:41] LABS: ALANINE AMINOTRANSFERASE 85 Units/L (12-78); ALBUMIN 3.2 g/dL (3.4-5.0); ALKALINE PHOSPHATASE 187 Units/L (46-116); ASPARTATE AMINO TRANSFERASE 20 Units/L (15-37); BLOOD UREA NITROGEN 21 mg/dL (7-18); CALCIUM 8.2 mg/dL (8.5-10.1); CARBON DIOXIDE 26.3 mmol/L (21-32); CHLORIDE 104 mmol/L (98-107); CKMB % 1.3 % (<4); COR CA(FOR HYPOALB) 8.8 mg/dL (8.5-10.1); CREATINE KINASE 76 Units/L (26-192); CREATINE KINASE MB < 1.0 ng/mL (0-4.0); CREATININE 4.51 mg/dL (0.55-1.02); LIPASE 107 Units/L (73-393); MAGNESIUM 1.8 mg/dL (1.7-2.9); SODIUM 142 mmol/L (136-145); TOTAL PROTEIN 6.1 g/dL (6.4-8.2); TROPONIN I < 0.02 ng/mL (0-1.5); eGFR NON BLACK RACES 11 (>60)
[2021-01-22 10:43] LABS: LACTIC ACID 1.1 mmol/L (0.4-2.0)
[2021-01-22] MEDS ORDERED: ZOFRAN INJ 4 MG VIAL IVP ONE (10:43)
[2021-01-22 10:44] LABS: BASOPHILS % (AUTO) 0.4 % (0.2-1.0); EOSINOPHILS # (AUTO) 0.2 x10^3/uL (0.0-0.2); EOSINOPHILS % (AUTO) 1.4 % (0.9-2.9); HEMATOCRIT 39.7 % (36.0-47.0); HEMOGLOBIN 13.7 g/dL (12.0-16.0); LYMPHOCYTES # (AUTO) 1.8 X10^3/uL (1.3-2.9); LYMPHOCYTES % (AUTO) 14.9 % (21.0-51.0); MEAN CORPUSCULAR HEMOGLOBIN 29.5 pg (27.0-34.0); MEAN CORPUSCULAR HGB CONC 34.6 g/dL (33.0-35.0); MEAN CORPUSCULAR VOLUME 85.2 fL (80.0-100.0); MEAN PLATELET VOLUME 10.2 fL (7.4-11.0); MONOCYTES # (AUTO) 0.7 x10^3/uL (0.3-0.8); MONOCYTES % (AUTO) 5.9 % (0.0-13.0); NEUTROPHILS # (AUTO) 9.5 x10^3/uL (2.2-4.8); NEUTROPHILS % (AUTO) 77.4 % (42.0-75.0); PLATELET COUNT 174 X10^3/uL (150.0-450.0); RED BLOOD COUNT 4.66 X10^6/uL (3.5-5.4); RED CELL DISTRIBUTION WIDTH 13.4 % (11.6-16.5); WHITE BLOOD COUNT 12.3 X10^3/uL (3.6-10.0)
[2021-01-22] MEDS ORDERED: K-RIDER 10 MEQ/NS 100 ML 10 MEQ/100 ML BAG IV ONE ×2 (11:42→11:45)
[2021-01-22] MEDS ORDERED: ATIVAN INJ 2 MG VIAL ONE (11:46)
[2021-01-22] MEDS: ATIVAN INJ 2 MG VIAL IVP ONE ×2 (11:59→12:00)
[2021-01-22] MEDS: NS 1,000 ML IV 1,000 ML IV SCH ×3 (14:23→23:18)
[2021-01-22] MEDS: K-RIDER 10 MEQ/NS 100 ML 10 MEQ/100 ML BAG IV SCH ×2 (14:28→21:39)
[2021-01-22 17:56] LABS: BILIRUBIN,URINE NEGATIVE (NEGATIVE); BLOOD/HEMOGLOBIN,URINE 3+ (NEGATIVE); GLUCOSE, URINE NEGATIVE (NEGATIVE); KETONES,URINE NEGATIVE (NEGATIVE); LEUKOCYTE ESTERASE ,URINE 1+ (NEGATIVE); NITRITES,URINE NEGATIVE (NEGATIVE); PROTEIN,URINE 3+ (NEGATIVE); UROBILINOGEN,URINE NORMAL (NORMAL)
[2021-01-22] MEDS ORDERED: THYROID 90 MG PO SCH (18:00)
[2021-01-22] MEDS ORDERED: THYROID 120 MG PO SCH (18:00)
[2021-01-22 18:05] LABS: APPEARANCE,URINE CLOUDY (CLEAR); COLOR,URINE YELLOW (YELLOW)
[2021-01-22 18:07] LABS: BACTERIA,URINE 1+ /HPF (NEGATIVE); SQUAMOUS EPITHELIAL CELL,UR NUMEROUS /HPF (NEGATIVE)
--- NOTE | 2021-01-22 18:09 | DR.H&P ---
H&P - Chief Complaint Chief Complaint: Weakness, generalized pain, nausea, achy all over - History of Present Illness History of Present Illness: Patient is a 45 year old white female who is being admitted due to acute renal failure. Patient reports she has been experiencing generalized weakness, achy all over, increased sleepiness for several days which have progressively gotten worse. Patient is in acute renal failure; receiving IV fluids. Patient also has a history of hypokalemia. States she was recently started on aldactone PO last week by PCP and since then she has progressively became worse (d/c aldactone). Patient reports continued nausea, aching, and pain. PMH hypothyroidism. Denies changes in bowels, bladder. Reports decreased appetite. No other concerns at present. Denies ever being in renal failure. - Past Medical History Past Medical History: Hypothyroidism, Kidney Stones Additional Medical History: Hypokalemia - Past Surgical History Surgical History: Cholecystectomy, Hysterectomy - Family History Family Medical History: Diabetes Mellitus, [place], Hypertension - Social History Does patient currently use any type of tobacco product: No Have you used tobacco products in the last 12 months: No Type of Tobacco Use: None Does any household member use tobacco: No Alcohol Use: None Drug Use: None - Medications Home Medications: No Known Drug Allergies Allergy (Verified 01/02/21 22:45) CONTINUE taking the following medications potassium chloride 20 meq PO TID 01/22/21 [History] thyroid (pork) [[place] Thyroid] 90 mg PO .MON,,Thu01/22/21 [History] thyroid (pork) [[place] Thyroid] 120 mg PO .TH,THU,THU,Thu01/22/21 [History] zolpidem [Ambien] 10 mg PO QHS 01/22/21 [History] - Review of Systems Constitutional: See HPI Eyes: See HPI ENT: See HPI Respiratory: See HPI Cardiovascular: See HPI Gastrointestinal: See HPI Genitourinary: See HPI Musculoskeletal: See HPI Skin: See HPI Neurological: See HPI - Physical Exam Vital Signs: Temperature 97.5 F Pulse Rate 66 Respiratory Rate 18 Blood Pressure [Left Arm] 89/50 Blood Pressure 85/51 O2 Sat by Pulse Oximetry 100 Oriented: Normal, Time, Person, Place Eyes: Normal Ear: Normal Nose: Normal Throat: Normal Respiratory: Clear Throughout Cardiovascular: Normal : Normal Auscultation: Bowel Sounds: Normal Palpation: Normal Tenderness: Diffuse, Mild, Other (diffuse mild tenderness) Skin: Normal Musculoskeletal: Normal Psychiatric: Normal Mood Description: Calm Affect: Normal Speech Pattern: Clear, Appropriate - Assessment/Plan (1) Acute nontraumatic kidney injury Status: Acute Plan: IV fluids. Repeat labs in am. Urine culture and UA pending. See EMR for further orders (2) Acute hypotension Status: Acute Plan: IV fluids (3) Acute hypokalemia Status: Acute Plan: Replace (4) Syncopal episodes Qualifiers: Syncope type: unspecified Qualified Code(s): R55 - Syncope and collapse Status: Acute Plan: Secondary to dehydration and hypotension (5) Acute dehydration Status: Acute Plan: IV fluids (6) Generalized weakness Status: Acute Plan: See above (7) Abdominal pain Status: Acute Plan: Pain control (8) Nausea Status: Acute Plan: Nausea control - Allergies Allergies/Adverse Reactions: Allergies Allergy/AdvReac Type Severity Reaction Status Date / Time No Known Drug Allergies Allergy Verified 01/02/21 22:45
[2021-01-22] MEDS: K-DUR TAB 20 MEQ PO SCH (21:39)
[2021-01-23] MEDS: K-RIDER 10 MEQ/NS 100 ML 10 MEQ/100 ML BAG IV SCH ×3 (05:30→22:21)
[2021-01-23] MEDS: K-DUR TAB 20 MEQ PO SCH ×3 (05:30→22:21)
[2021-01-23] MEDS: NS 1,000 ML IV 1,000 ML IV SCH ×4 (05:30→22:46)
[2021-01-23 06:19] LABS: BASOPHILS % (AUTO) 0.6 % (0.2-1.0); EOSINOPHILS # (AUTO) 0.2 x10^3/uL (0.0-0.2); EOSINOPHILS % (AUTO) 2.3 % (0.9-2.9); HEMATOCRIT 37.4 % (36.0-47.0); HEMOGLOBIN 13.1 g/dL (12.0-16.0); LYMPHOCYTES # (AUTO) 1.3 X10^3/uL (1.3-2.9); LYMPHOCYTES % (AUTO) 15.9 % (21.0-51.0); MEAN CORPUSCULAR HEMOGLOBIN 29.7 pg (27.0-34.0); MEAN CORPUSCULAR VOLUME 84.8 fL (80.0-100.0); MEAN PLATELET VOLUME 9.7 fL (7.4-11.0); MONOCYTES # (AUTO) 0.7 x10^3/uL (0.3-0.8); MONOCYTES % (AUTO) 8.9 % (0.0-13.0); NEUTROPHILS # (AUTO) 5.9 x10^3/uL (2.2-4.8); NEUTROPHILS % (AUTO) 72.3 % (42.0-75.0); PLATELET COUNT 135 X10^3/uL (150.0-450.0); RED BLOOD COUNT 4.41 X10^6/uL (3.5-5.4); RED CELL DISTRIBUTION WIDTH 13.5 % (11.6-16.5); WHITE BLOOD COUNT 8.1 X10^3/uL (3.6-10.0)
[2021-01-23 07:01] LABS: ALANINE AMINOTRANSFERASE 59 Units/L (12-78); ALBUMIN 2.4 g/dL (3.4-5.0); ALKALINE PHOSPHATASE 149 Units/L (46-116); ASPARTATE AMINO TRANSFERASE 25 Units/L (15-37); BLOOD UREA NITROGEN 22 mg/dL (7-18); CALCIUM 7.2 mg/dL (8.5-10.1); CARBON DIOXIDE 20.5 mmol/L (21-32); CHLORIDE 108 mmol/L (98-107); COR CA(FOR HYPOALB) 8.5 mg/dL (8.5-10.1); CREATININE 5.13 mg/dL (0.55-1.02); MAGNESIUM 1.5 mg/dL (1.7-2.9); SODIUM 141 mmol/L (136-145); eGFR NON BLACK RACES 10 (>60)
--- NOTE | 2021-01-23 11:13 | US ---
HISTORYHypertension, elevated creatinine, renal stones.STUDYRENAL USCOMPARISONNone available.TECHNIQUEMultiple tellez scale and color flow Doppler images of the kidneys were obtained. The region of the urinary bladder was evaluated as well.FINDINGSThe right kidney is normal in echotexture and size. The right kidney measures 12 x 5 cm. No focal mass, hydronephrosis, or stones identified.The left kidney is unremarkable in its echotexture and size. The left kidney measures 13 x 5 cm.No focal mass, hydronephrosis, or stone can be seen within the left kidney.The region of the urinary bladder is grossly unremarkable.There is a Doppler resistive index within the right kidney is within normal limits, measuring 0.8.IMPRESSIONUnremarkable evaluation of the kidneys.Electronically signed by: ELIJAH LARA III (Jan 23, 2021 11:11:58)
[2021-01-23] MEDS: MORPHINE SULFATE INJ 2 MG INJ IVP PRN ×2 (11:34→22:21)
[2021-01-23 14:58] LABS: ALANINE AMINOTRANSFERASE 66 Units/L (12-78); ALBUMIN 2.5 g/dL (3.4-5.0); ALKALINE PHOSPHATASE 148 Units/L (46-116); ASPARTATE AMINO TRANSFERASE 39 Units/L (15-37); BLOOD UREA NITROGEN 22 mg/dL (7-18); CALCIUM 7.7 mg/dL (8.5-10.1); CARBON DIOXIDE 24.2 mmol/L (21-32); CHLORIDE 109 mmol/L (98-107); COR CA(FOR HYPOALB) 8.9 mg/dL (8.5-10.1); CREATININE 5.04 mg/dL (0.55-1.02); SODIUM 143 mmol/L (136-145); eGFR NON BLACK RACES 10 (>60)
[2021-01-23] MEDS: MAGNESIUM SULFATE 1 GRAM/100 mL PREMIX 1 G/100 ML BAG IV PRN ×2 (18:27→19:59)
[2021-01-23] MEDS: ZOFRAN INJ 4 MG VIAL IVP PRN (22:46)
[2021-01-24] MEDS: MORPHINE SULFATE INJ 2 MG INJ IVP PRN ×3 (05:20→18:19)
[2021-01-24] MEDS: K-RIDER 10 MEQ/NS 100 ML 10 MEQ/100 ML BAG IV SCH ×3 (05:25→21:47)
[2021-01-24] MEDS: K-DUR TAB 20 MEQ PO SCH (05:25)
[2021-01-24] MEDS: ZOFRAN INJ 4 MG VIAL IVP PRN ×2 (05:32→15:33)
[2021-01-24 06:10] LABS: BASOPHILS % (AUTO) 0.3 % (0.2-1.0); EOSINOPHILS # (AUTO) 0.1 x10^3/uL (0.0-0.2); EOSINOPHILS % (AUTO) 1.7 % (0.9-2.9); HEMATOCRIT 32.8 % (36.0-47.0); HEMOGLOBIN 11.8 g/dL (12.0-16.0); LYMPHOCYTES # (AUTO) 0.9 X10^3/uL (1.3-2.9); LYMPHOCYTES % (AUTO) 12.6 % (21.0-51.0); MEAN CORPUSCULAR HEMOGLOBIN 30.6 pg (27.0-34.0); MEAN CORPUSCULAR HGB CONC 35.9 g/dL (33.0-35.0); MEAN CORPUSCULAR VOLUME 85.3 fL (80.0-100.0); MEAN PLATELET VOLUME 9.3 fL (7.4-11.0); MONOCYTES # (AUTO) 0.7 x10^3/uL (0.3-0.8); MONOCYTES % (AUTO) 9.3 % (0.0-13.0); NEUTROPHILS # (AUTO) 5.6 x10^3/uL (2.2-4.8); NEUTROPHILS % (AUTO) 76.1 % (42.0-75.0); PLATELET COUNT 128 X10^3/uL (150.0-450.0); RED BLOOD COUNT 3.85 X10^6/uL (3.5-5.4); RED CELL DISTRIBUTION WIDTH 13.3 % (11.6-16.5); WHITE BLOOD COUNT 7.3 X10^3/uL (3.6-10.0)
[2021-01-24] MEDS: NS 1,000 ML IV 1,000 ML IV SCH ×3 (06:26→21:47)
[2021-01-24 06:32] LABS: ALBUMIN 2.4 g/dL (3.4-5.0); CARBON DIOXIDE 22.2 mmol/L (21-32); COR CA(FOR HYPOALB) 9.3 mg/dL (8.5-10.1); CREATININE 3.8 mg/dL (0.55-1.02); MAGNESIUM 1.9 mg/dL (1.7-2.9); TOTAL PROTEIN 5.1 g/dL (6.4-8.2)
[2021-01-24] MEDS ORDERED: FLUZONE II4 or AFLURIA II4 IM ONE (09:00)
--- NOTE | 2021-01-24 14:39 | PCM.PROG ---
Progress Note - Progress Note for Day of Date of Exam: 01/23/21 - Subjective Subjective: Patient is a 45 year old white female who was admitted due to acute renal failure, ATN likely secondary to diuretics. Patient has chronic hypokalemia and has been hospitalized in the past due to this. Patient follows up with a business area director in [place] due to potassium. Creatnine mildly improving. No other concerns at present. Patient was seen on this day by Dr. Hudson. Scribing this document for Dr. Hudson. - Past Medical Family Social History Past Med/Fam/Surg Hx: No changes since H&P Allergies: Allergies No Known Drug Allergies Allergy (Verified 01/02/21 22:45) - Review of Systems ROS: No change since H&P - Vital Signs and I&O's Vital Signs: Temperature 98.6 F Pulse Rate [Brachial] 79 Pulse Rate 66 Respiratory Rate 20 Blood Pressure [Left Arm] 104/58 Blood Pressure 85/51 O2 Sat by Pulse Oximetry 98 Intake and Output: Intake & Output 01/21/21 01/22/21 01/23/21 01/24/21 23:59 23:59 23:59 23:59 Intake Total 1776 / 1776 4625 / 4625 2044 Output Total 0 / 0 Balance 1776 / 1776 4625 / 4625 2044 - Physical Exam Oriented: Normal, Time, Person, Place Eyes: Normal Ear: Normal Nose: Normal Throat: Normal Respiratory: Normal Cardiovascular: Normal : Normal Auscultation: Bowel Sounds: Normal Tenderness: Diffuse, Mild, Other (diffuse mild tenderness) Skin: Normal Musculoskeletal: Normal Psychiatric: Normal Mood Description: Calm Affect: Normal Speech Pattern: Clear, Appropriate - Laboratory and Diagnostics Result Diagrams: 01/24/21 05:52 01/24/21 05:52 Labs: 01/22/21 22:30 Urine,Clean Catch Urine Culture - Final Laboratory WBC 7.3 X10^3/uL (3.6-10.0) 01/24/21 05:52 RBC 3.85 X10^6/uL (3.5-5.4) 01/24/21 05:52 Hgb 11.8 g/dL (12.0-16.0) L 01/24/21 05:52 Hct 32.8 % (36.0-47.0) L 01/24/21 05:52 MCV 85.3 fL (80.0-100.0) 01/24/21 05:52 MCH 30.6 pg (27.0-34.0) 01/24/21 05:52 MCHC 35.9 g/dL (33.0-35.0) H 01/24/21 05:52 RDW 13.3 % (11.6-16.5) 01/24/21 05:52 Plt Count 128 X10^3/uL (150.0-450.0) L 01/24/21 05:52 MPV 9.3 fL (7.4-11.0) 01/24/21 05:52 Neut % (Auto) 76.1 % (42.0-75.0) H 01/24/21 05:52 Lymph % (Auto) 12.6 % (21.0-51.0) L 01/24/21 05:52 [place] % (Auto) 9.3 % (0.0-13.0) 01/24/21 05:52 Eos % (Auto) 1.7 % (0.9-2.9) 01/24/21 05:52 Baso % (Auto) 0.3 % (0.2-1.0) 01/24/21 05:52 Neut # (Auto) 5.6 x10^3/uL (2.2-4.8) H 01/24/21 05:52 Lymph # (Auto) 0.9 X10^3/uL (1.3-2.9) L 01/24/21 05:52 [place] # (Auto) 0.7 x10^3/uL (0.3-0.8) 01/24/21 05:52 Eos # (Auto) 0.1 x10^3/uL (0.0-0.2) 01/24/21 05:52 Baso # (Auto) 0.0 X10^3/uL (0.0-0.1) 01/24/21 05:52 Absolute Nucleated RBC 0.0 /100WBC 01/24/21 05:52 Sodium 142 mmol/L (136-145) 01/24/21 05:52 Corrected Sodium 143 mmol/L (136-145) 01/24/21 05:52 Potassium 3.6 mmol/L (3.5-5.1) 01/24/21 05:52 Chloride 108 mmol/L (98-107) H 01/24/21 05:52 Carbon Dioxide 22.2 mmol/L (21-32) 01/24/21 05:52 BUN 18 mg/dL (7-18) 01/24/21 05:52 Creatinine 3.80 mg/dL (0.55-1.02) H 01/24/21 05:52 Est GFR (MDRD) Af Amer 16 (>60) L 01/24/21 05:52 Est GFR (MDRD) Non-Af 14 (>60) L 01/24/21 05:52 Glucose 130 mg/dL (65-99) H 01/24/21 05:52 Lactic Acid 1.1 mmol/L (0.4-2.0) 01/22/21 10:05 Calcium 8.0 mg/dL (8.5-10.1) L 01/24/21 05:52 Corrected Calcium 9.3 mg/dL (8.5-10.1) 01/24/21 05:52 Magnesium 1.9 mg/dL (1.7-2.9) 01/24/21 05:52 Total Bilirubin 0.60 mg/dL (0.2-1.0) 01/24/21 05:52 AST 55 Units/L (15-37) H 01/24/21 05:52 ALT 78 Units/L (12-78) 01/24/21 05:52 Alkaline Phosphatase 151 Units/L (46-116) H 01/24/21 05:52 Creatine Kinase 76 Units/L (26-192) 01/22/21 10:05 CK-MB (CK-2) < 1.0 ng/mL (0-4.0) 01/22/21 10:05 CK/CKMB % Calc 1.3 % (<4) 01/22/21 10:05 Troponin I < 0.02 ng/mL (0-1.5) 01/22/21 10:05 Total Protein 5.1 g/dL (6.4-8.2) L 01/24/21 05:52 Albumin 2.4 g/dL (3.4-5.0) L 01/24/21 05:52 Globulin 2.7 g/dL (2.5-4.5) 01/24/21 05:52 Albumin/Globulin Ratio 0.9 Ratio (1.1-2.1) L 01/24/21 05:52 Lipase 107 Units/L (73-393) 01/22/21 10:05 Specimen Type Random urine 01/22/21 17:27 Urine Color Yellow (YELLOW) 01/22/21 17:27 Urine Appearance Cloudy (CLEAR) 01/22/21 17:27 Urine pH 5.0 (5.0 - 8.0) 01/22/21 17:27 Ur Specific [place] 1.020 (1.000-1.030) 01/22/21 17:27 Urine Protein 3+ (NEGATIVE) 01/22/21 17: Urine Glucose (UA) Negative (NEGATIVE) 01/22/21 17: Urine Ketones Negative (NEGATIVE) 01/22/21 17:27 Urine Occult Blood 3+ (NEGATIVE) 01/22/21 17:27 Urine Nitrite Negative (NEGATIVE) 01/22/21 17:27 Urine Bilirubin Negative (NEGATIVE) 01/22/21 17:27 Urine Urobilinogen Normal (NORMAL) 01/22/21 17:27 Ur Leukocyte Esterase 1+ (NEGATIVE) 01/22/21 17:27 Urine RBC 5-10 /HPF (0-3) A 01/22/21 17:27 Urine WBC 3-5 /HPF (0-5) 01/22/21 17:27 Ur Squamous Epith Cells Numerous /HPF (NEGATIVE) 01/22/21 17:27 Urine Bacteria 1+ /HPF (NEGATIVE) 01/22/21 17:27 Ur Culture Indicated? No/not indicated 01/22/21 17:27 SARS CoV-2 RNA Rapid LISA Negative (NEGATIVE) 01/22/21 12:12 - Plan (1) ATN (acute tubular necrosis) Status: Acute Plan: see above (2) Acute nontraumatic kidney injury Status: Acute Plan: IV fluids. Repeat labs in am. Urine culture and UA pending. See EMR for further orders (3) Acute hypotension Status: Acute Plan: IV fluids. Improved (4) Acute hypokalemia Status: Acute Plan: Replace (5) Syncopal episodes Status: Acute Qualifiers: Syncope type: unspecified Qualified Code(s): R55 - Syncope and collapse Plan: Secondary to dehydration and hypotension (6) Acute dehydration Status: Acute Plan: IV fluids (7) Generalized weakness Status: Acute Plan: See above (8) Abdominal pain Status: Acute Plan: improved. Pain control (9) Nausea Status: Acute Plan: Nausea control. improved
--- NOTE | 2021-01-24 14:40 | PCM.PROG ---
Progress Note - Subjective Subjective: Patient is a 45 year old white female who was admitted due to acute renal failure, ATN likely secondary to diuretics. Patient has chronic hypokalemia and has been hospitalized in the past due to this. Patient follows up with a rn mobile in [place] due to potassium. Creatnine mildly improving. No other concerns at present. We do not see dialysis in the future. Possible dc in am. Patient was seen on this day by Dr. Hudson. Scribing this document for Dr. Hudson. - Past Medical Family Social History Past Med/Fam/Surg Hx: No changes since H&P Allergies: Allergies No Known Drug Allergies Allergy (Verified 01/02/21 22:45) - Review of Systems ROS: No change since H&P - Vital Signs and I&O's Vital Signs: Temperature 98.6 F Pulse Rate [Brachial] 79 Pulse Rate 66 Respiratory Rate 20 Blood Pressure [Left Arm] 104/58 Blood Pressure 85/51 O2 Sat by Pulse Oximetry 98 Intake and Output: Intake & Output 01/21/21 01/22/21 01/23/21 01/24/21 23:59 23:59 23:59 23:59 Intake Total 1776 / 1776 4625 / 4625 2044 Output Total 0 / 0 Balance 1776 / 1776 4625 / 4625 2044 - Physical Exam Oriented: Normal, Time, Person, Place Eyes: Normal Ear: Normal Nose: Normal Throat: Normal Respiratory: Normal Cardiovascular: Normal : Normal Auscultation: Bowel Sounds: Normal Palpation: Normal Tenderness: Diffuse, Mild, Other (diffuse mild tenderness) Skin: Normal Musculoskeletal: Normal Psychiatric: Normal Mood Description: Calm Affect: Normal Speech Pattern: Clear, Appropriate - Laboratory and Diagnostics Result Diagrams: 01/24/21 05:52 01/24/21 05:52 Labs: 01/22/21 22:30 Urine,Clean Catch Urine Culture - Final Laboratory WBC 7.3 X10^3/uL (3.6-10.0) 01/24/21 05:52 RBC 3.85 X10^6/uL (3.5-5.4) 01/24/21 05:52 Hgb 11.8 g/dL (12.0-16.0) L 01/24/21 05:52 Hct 32.8 % (36.0-47.0) L 01/24/21 05:52 MCV 85.3 fL (80.0-100.0) 01/24/21 05:52 MCH 30.6 pg (27.0-34.0) 01/24/21 05:52 MCHC 35.9 g/dL (33.0-35.0) H 01/24/21 05:52 RDW 13.3 % (11.6-16.5) 01/24/21 05:52 Plt Count 128 X10^3/uL (150.0-450.0) L 01/24/21 05:52 MPV 9.3 fL (7.4-11.0) 01/24/21 05:52 Neut % (Auto) 76.1 % (42.0-75.0) H 01/24/21 05:52 Lymph % (Auto) 12.6 % (21.0-51.0) L 01/24/21 05:52 [place] % (Auto) 9.3 % (0.0-13.0) 01/24/21 05:52 Eos % (Auto) 1.7 % (0.9-2.9) 01/24/21 05:52 Baso % (Auto) 0.3 % (0.2-1.0) 01/24/21 05:52 Neut # (Auto) 5.6 x10^3/uL (2.2-4.8) H 01/24/21 05:52 Lymph # (Auto) 0.9 X10^3/uL (1.3-2.9) L 01/24/21 05:52 [place] # (Auto) 0.7 x10^3/uL (0.3-0.8) 01/24/21 05:52 Eos # (Auto) 0.1 x10^3/uL (0.0-0.2) 01/24/21 05:52 Baso # (Auto) 0.0 X10^3/uL (0.0-0.1) 01/24/21 05:52 Absolute Nucleated RBC 0.0 /100WBC 01/24/21 05:52 Sodium 142 mmol/L (136-145) 01/24/21 05:52 Corrected Sodium 143 mmol/L (136-145) 01/24/21 05:52 Potassium 3.6 mmol/L (3.5-5.1) 01/24/21 05:52 Chloride 108 mmol/L (98-107) H 01/24/21 05:52 Carbon Dioxide 22.2 mmol/L (21-32) 01/24/21 05:52 BUN 18 mg/dL (7-18) 01/24/21 05:52 Creatinine 3.80 mg/dL (0.55-1.02) H 01/24/21 05:52 Est GFR (MDRD) Af Amer 16 (>60) L 01/24/21 05:52 Est GFR (MDRD) Non-Af 14 (>60) L 01/24/21 05:52 Glucose 130 mg/dL (65-99) H 01/24/21 05:52 Lactic Acid 1.1 mmol/L (0.4-2.0) 01/22/21 10:05 Calcium 8.0 mg/dL (8.5-10.1) L 01/24/21 05:52 Corrected Calcium 9.3 mg/dL (8.5-10.1) 01/24/21 05:52 Magnesium 1.9 mg/dL (1.7-2.9) 01/24/21 05:52 Total Bilirubin 0.60 mg/dL (0.2-1.0) 01/24/21 05:52 AST 55 Units/L (15-37) H 01/24/21 05:52 ALT 78 Units/L (12-78) 01/24/21 05:52 Alkaline Phosphatase 151 Units/L (46-116) H 01/24/21 05:52 Creatine Kinase 76 Units/L (26-192) 01/22/21 10:05 CK-MB (CK-2) < 1.0 ng/mL (0-4.0) 01/22/21 10:05 CK/CKMB % Calc 1.3 % (<4) 01/22/21 10:05 Troponin I < 0.02 ng/mL (0-1.5) 01/22/21 10:05 Total Protein 5.1 g/dL (6.4-8.2) L 01/24/21 05:52 Albumin 2.4 g/dL (3.4-5.0) L 01/24/21 05:52 Globulin 2.7 g/dL (2.5-4.5) 01/24/21 05:52 Albumin/Globulin Ratio 0.9 Ratio (1.1-2.1) L 01/24/21 05:52 Lipase 107 Units/L (73-393) 01/22/21 10:05 Specimen Type Random urine 01/22/21 17:27 Urine Color Yellow (YELLOW) 01/22/21 17:27 Urine Appearance Cloudy (CLEAR) 01/22/21 17:27 Urine pH 5.0 (5.0 - 8.0) 01/22/21 17:27 Ur Specific [place] 1.020 (1.000-1.030) 01/22/21 17:27 Urine Protein 3+ (NEGATIVE) 01/22/21 17:27 Urine Glucose (UA) Negative (NEGATIVE) 01/22/21 17: Urine Ketones Negative (NEGATIVE) 01/22/21 17:27 Urine Occult Blood 3+ (NEGATIVE) 01/22/21 17:27 Urine Nitrite Negative (NEGATIVE) 01/22/21 17:27 Urine Bilirubin Negative (NEGATIVE) 01/22/21 17:27 Urine Urobilinogen Normal (NORMAL) 01/22/21 17:27 Ur Leukocyte Esterase 1+ (NEGATIVE) 01/22/21 17:27 Urine RBC 5-10 /HPF (0-3) A 01/22/21 17:27 Urine WBC 3-5 /HPF (0-5) 01/22/21 17:27 Ur Squamous Epith Cells Numerous /HPF (NEGATIVE) 01/22/21 17:27 Urine Bacteria 1+ /HPF (NEGATIVE) 01/22/21 17:27 Ur Culture Indicated? No/not indicated 01/22/21 17:27 SARS CoV-2 RNA Rapid LISA Negative (NEGATIVE) 01/22/21 12:12 - Plan (1) ATN (acute tubular necrosis) Status: Acute Plan: see above (2) Acute nontraumatic kidney injury Status: Acute Plan: IV fluids. Repeat labs in am. Urine culture and UA pending. See EMR for further orders (3) Acute hypotension Status: Acute Plan: IV fluids. Improved (4) Acute hypokalemia Status: Acute Plan: Replace (5) Syncopal episodes Status: Acute Qualifiers: Syncope type: unspecified Qualified Code(s): R55 - Syncope and collapse Plan: Secondary to dehydration and hypotension (6) Acute dehydration Status: Acute Plan: IV fluids (7) Generalized weakness Status: Acute Plan: See above (8) Abdominal pain Status: Acute Plan: improved. Pain control (9) Nausea Status: Acute Plan: Nausea control. improved
[2021-01-25] MEDS: MORPHINE SULFATE INJ 2 MG INJ IVP PRN ×2 (00:26→11:46)
[2021-01-25] MEDS ORDERED: TYLENOL 325 MG TAB PO PRN (02:39)
[2021-01-25] MEDS: K-RIDER 10 MEQ/NS 100 ML 10 MEQ/100 ML BAG IV SCH (05:16)
[2021-01-25] MEDS: NS 1,000 ML IV 1,000 ML IV SCH (06:02)
[2021-01-25 06:28] LABS: BASOPHILS % (AUTO) 0.6 % (0.2-1.0); EOSINOPHILS # (AUTO) 0.1 x10^3/uL (0.0-0.2); EOSINOPHILS % (AUTO) 2.9 % (0.9-2.9); HEMATOCRIT 32.6 % (36.0-47.0); HEMOGLOBIN 11.8 g/dL (12.0-16.0); LYMPHOCYTES # (AUTO) 0.8 X10^3/uL (1.3-2.9); LYMPHOCYTES % (AUTO) 16.8 % (21.0-51.0); MEAN CORPUSCULAR HEMOGLOBIN 30.4 pg (27.0-34.0); MEAN CORPUSCULAR HGB CONC 36.3 g/dL (33.0-35.0); MEAN CORPUSCULAR VOLUME 83.9 fL (80.0-100.0); MEAN PLATELET VOLUME 9.5 fL (7.4-11.0); MONOCYTES # (AUTO) 0.6 x10^3/uL (0.3-0.8); MONOCYTES % (AUTO) 10.9 % (0.0-13.0); NEUTROPHILS # (AUTO) 3.5 x10^3/uL (2.2-4.8); NEUTROPHILS % (AUTO) 68.8 % (42.0-75.0); PLATELET COUNT 116 X10^3/uL (150.0-450.0); RED BLOOD COUNT 3.89 X10^6/uL (3.5-5.4); RED CELL DISTRIBUTION WIDTH 13.3 % (11.6-16.5); WHITE BLOOD COUNT 5.1 X10^3/uL (3.6-10.0)
[2021-01-25 06:42] LABS: ALANINE AMINOTRANSFERASE 53 Units/L (12-78); ALBUMIN 2.2 g/dL (3.4-5.0); ALKALINE PHOSPHATASE 136 Units/L (46-116); ASPARTATE AMINO TRANSFERASE 20 Units/L (15-37); BLOOD UREA NITROGEN 14 mg/dL (7-18); CALCIUM 8.1 mg/dL (8.5-10.1); CARBON DIOXIDE 26.9 mmol/L (21-32); CHLORIDE 107 mmol/L (98-107); COR CA(FOR HYPOALB) 9.5 mg/dL (8.5-10.1); CREATININE 2.44 mg/dL (0.55-1.02); SODIUM 143 mmol/L (136-145); eGFR NON BLACK RACES 23 (>60)
[2021-01-25 08:20] LABS: FREE T4 (FREE THYROXINE) 1.18 ng/dL (0.76-1.46); MAGNESIUM 1.7 mg/dL (1.7-2.9); TSH (3RD GENERATION) 0.007 uIU/mL (0.358-3.74)
[2021-01-25 08:37] LABS: RHEUMATOID FACTOR NEGATIVE (NEGATIVE)
[2021-01-25] MEDS: ZOFRAN INJ 4 MG VIAL IVP PRN (08:46)
[2021-01-25] MEDS: MAGNESIUM SULFATE 1 GRAM/100 mL PREMIX 1 G/100 ML BAG IV PRN ×2 (08:49→09:57)
[2021-01-25] MEDS ORDERED: K-DUR TAB 20 MEQ PO SCH (09:00)
[2021-01-25 13:24] VITALS: BP 111/55
[2021-01-26] MEDS ORDERED: MAG-OX TAB PO SCH (07:00)
== END 2021-01-25 14:00 | disposition home or self-care (01) | DRG 684 ==
LOC: ER 09:33 → MED/SURG 09:33 → OBSVTOIN 13:54 → MED/SURG 14:04
PROVIDERS: ADMIT Internal Medicine; ATTEND Internal Medicine
DX: R55 Syncope and collapse; E86.0 Dehydration; R53.1 Weakness; Z20.822 Contact with and (suspected) exposure to COVID-19; R10.84 Generalized abdominal pain; R94.31 Abnormal electrocardiogram [ECG] [EKG]; N17.0 Acute kidney failure with tubular necrosis; I95.89 Other hypotension; R51.9 Headache, unspecified; M54.89 Other dorsalgia; E87.6 Hypokalemia

== ENCOUNTER 2021-07-10 15:59 | Inpatient (IN) ==
[2021-07-10] MEDS ORDERED: NORCO 5/325 MG TAB ONE (17:16)
[2021-07-10] MEDS ORDERED: NS 1,000 ML IV 1,000 ML ONE (17:16)
[2021-07-10] MEDS: NS 1,000 ML IV 1,000 ML IV SCH ×2 (17:27→17:30)
[2021-07-10 17:28] VITALS: BMI 23.0
[2021-07-10] MEDS: ZOFRAN INJ 4 MG VIAL IVP PRN (17:30)
[2021-07-10] MEDS: NORCO 5/325 MG TAB PO PRN (17:31)
[2021-07-10] MEDS: TORADOL 30 MG VIAL IVP PRN (17:45)
[2021-07-10 18:21] LABS: ALANINE AMINOTRANSFERASE 33 Units/L (12-78); ALBUMIN 3.8 g/dL (3.4-5.0); ALKALINE PHOSPHATASE 172 Units/L (46-116); ASPARTATE AMINO TRANSFERASE 44 Units/L (15-37); BLOOD UREA NITROGEN 17 mg/dL (7-18); CALCIUM 9.3 mg/dL (8.5-10.1); CARBON DIOXIDE 34.6 mmol/L (21-32); CHLORIDE 95 mmol/L (98-107); CREATININE 1.37 mg/dL (0.55-1.02); SODIUM 136 mmol/L (136-145); TOTAL PROTEIN 7.3 g/dL (6.4-8.2); eGFR NON BLACK RACES 44 (>60)
[2021-07-10 18:25] LABS: BASOPHILS # (AUTO) 0.1 X10^3/uL (0.0-0.1); BASOPHILS % (AUTO) 0.7 % (0.2-1.0); EOSINOPHILS # (AUTO) 0.1 x10^3/uL (0.0-0.2); EOSINOPHILS % (AUTO) 0.8 % (0.9-2.9); HEMATOCRIT 42.4 % (36.0-47.0); HEMOGLOBIN 15.2 g/dL (12.0-16.0); LYMPHOCYTES # (AUTO) 1.9 X10^3/uL (1.3-2.9); LYMPHOCYTES % (AUTO) 24.2 % (21.0-51.0); MEAN CORPUSCULAR HEMOGLOBIN 29.5 pg (27.0-34.0); MEAN CORPUSCULAR HGB CONC 35.8 g/dL (33.0-35.0); MEAN CORPUSCULAR VOLUME 82.5 fL (80.0-100.0); MONOCYTES # (AUTO) 0.7 x10^3/uL (0.3-0.8); MONOCYTES % (AUTO) 9.5 % (0.0-13.0); NEUTROPHILS % (AUTO) 64.8 % (42.0-75.0); RED BLOOD COUNT 5.14 X10^6/uL (3.5-5.4); RED CELL DISTRIBUTION WIDTH 13.6 % (11.6-16.5); WHITE BLOOD COUNT 7.7 X10^3/uL (3.6-10.0)
[2021-07-10] MEDS ORDERED: POTASSIUM CHLORIDE LIQ 20 MEQ UDC PO PRN (18:43)
[2021-07-10] MEDS ORDERED: MICRO K EXTEN CAP 10 MEQ PO PRN (18:43)
[2021-07-10] MEDS ORDERED: POTASSIUM CHL 40 MEQ/NS 0.45% 500 ML IV PRN (18:43)
[2021-07-10] MEDS ORDERED: POTASSIUM CHL 60 MEQ/NS 0.45% 500 ML IV PRN (18:43)
[2021-07-10] MEDS ORDERED: KLOR-CON PO PRN (18:43)
[2021-07-10 21:21] LABS: BILIRUBIN,URINE NEGATIVE (NEGATIVE); BLOOD/HEMOGLOBIN,URINE 5+ (NEGATIVE); GLUCOSE, URINE NEGATIVE (NEGATIVE); KETONES,URINE NEGATIVE (NEGATIVE); LEUKOCYTE ESTERASE ,URINE 1+ (NEGATIVE); NITRITES,URINE NEGATIVE (NEGATIVE); PROTEIN,URINE 2+ (NEGATIVE); UROBILINOGEN,URINE NORMAL (NORMAL)
[2021-07-10 21:38] LABS: APPEARANCE,URINE SLIGHTLY HAZY (CLEAR); BACTERIA,URINE TRACE /HPF (NEGATIVE); COLOR,URINE AMBER (YELLOW); RBC,URINE TNTC /HPF (0-3); SQUAMOUS EPITHELIAL CELL,UR FEW /HPF (NEGATIVE)
[2021-07-10] MEDS: MORPHINE SULFATE INJ 2 MG INJ IVP PRN (21:58)
[2021-07-10] MEDS: MAGNESIUM SULFATE 1 GRAM/100 mL PREMIX 1 G/100 ML BAG IV PRN ×2 (22:17→23:23)
[2021-07-11] MEDS: ZOFRAN INJ 4 MG VIAL IVP PRN (00:59)
[2021-07-11] MEDS: K-RIDER 10 MEQ/NS 100 ML 10 MEQ/100 ML BAG IV PRN ×6 (01:07→13:34)
[2021-07-11] MEDS: NS 1,000 ML IV 1,000 ML IV SCH ×3 (01:11→16:20)
[2021-07-11] MEDS: TORADOL 30 MG VIAL IVP PRN (01:18)
[2021-07-11] MEDS: MORPHINE SULFATE INJ 2 MG INJ IVP PRN (04:35)
[2021-07-11 05:03] LABS: EOSINOPHILS # (AUTO) 0.1 x10^3/uL (0.0-0.2); LYMPHOCYTES # (AUTO) 1.3 X10^3/uL (1.3-2.9); MEAN CORPUSCULAR HEMOGLOBIN 29.8 pg (27.0-34.0)
[2021-07-11 05:18] LABS: ALANINE AMINOTRANSFERASE 36 Units/L (12-78); ALBUMIN 3.3 g/dL (3.4-5.0); ALKALINE PHOSPHATASE 152 Units/L (46-116); ASPARTATE AMINO TRANSFERASE 41 Units/L (15-37); BASOPHILS # (AUTO) 0.1 X10^3/uL (0.0-0.1); BASOPHILS % (AUTO) 0.6 % (0.2-1.0); BLOOD UREA NITROGEN 16 mg/dL (7-18); CALCIUM 8.5 mg/dL (8.5-10.1); CARBON DIOXIDE 31.8 mmol/L (21-32); CHLORIDE 97 mmol/L (98-107); COR CA(FOR HYPOALB) 9.1 mg/dL (8.5-10.1); CREATININE 1.35 mg/dL (0.55-1.02); EOSINOPHILS % (AUTO) 0.7 % (0.9-2.9); HEMATOCRIT 38.9 % (36.0-47.0); HEMOGLOBIN 14.1 g/dL (12.0-16.0); LYMPHOCYTES % (AUTO) 14.7 % (21.0-51.0); MEAN CORPUSCULAR HGB CONC 36.2 g/dL (33.0-35.0); MEAN CORPUSCULAR VOLUME 82.2 fL (80.0-100.0); MEAN PLATELET VOLUME 10.3 fL (7.4-11.0); MONOCYTES # (AUTO) 0.9 x10^3/uL (0.3-0.8); MONOCYTES % (AUTO) 9.6 % (0.0-13.0); NEUTROPHILS # (AUTO) 6.7 x10^3/uL (2.2-4.8); NEUTROPHILS % (AUTO) 74.4 % (42.0-75.0); RED BLOOD COUNT 4.73 X10^6/uL (3.5-5.4); RED CELL DISTRIBUTION WIDTH 13.4 % (11.6-16.5); SODIUM 137 mmol/L (136-145); TOTAL PROTEIN 6.4 g/dL (6.4-8.2); WHITE BLOOD COUNT 8.9 X10^3/uL (3.6-10.0); eGFR NON BLACK RACES 45 (>60)
[2021-07-11] MEDS: PHENERGAN INJ 25 MG IM PRN ×3 (06:30→22:25)
[2021-07-11] MEDS ORDERED: FLOMAX PO SCH (09:00)
[2021-07-11] MEDS ORDERED: ROCEPHIN VIAL 1 GRAM 1 G in NS 100 ML IV + SPIKE MINIBAG* 100 ML IV SCH (09:00)
[2021-07-11] MEDS ORDERED: DEMEROL INJ IVP PRN (09:42)
[2021-07-11] MEDS: ROCEPHIN VIAL 1 GRAM 1 G in NS 100 ML IV 100 ML IV SCH (10:08)
[2021-07-11] MEDS: DEMEROL INJ IVP PRN ×3 (10:18→22:25)
--- NOTE | 2021-07-11 12:42 | CT ---
HISTORYABD PAIN. Nephrolithiasis, left flank painSTUDYABDOMEN/PELVIS W/O CONCOMPARISONCT 11/14/2019TECHNIQUEMultiple axial images of the abdomen and pelvis were obtained from the lung bases to the pubic symphysis without the administration of IV contrast. Dose reduction techniques including Automated Exposure Control (AEC) and adjustment of mA and kV were utilized.FINDINGSThe visualized portions of the lung bases suggest minimal dependent atelectasis.No hepatic abnormality is seen but there is mild splenomegaly. Spleen has increased in size since prior study measuring 14.2 cm in craniocaudad dimension.Prior cholecystectomy. No biliary ductal dilation.No pancreatic abnormality is seen.The adrenal glands appear normal.No hydronephrosis or renal abnormality is seen. Ureters and bladder appear normal. Phleboliths are seen in the pelvis.Mild increased air and fluid is seen in the small bowel. Consider possible jejunitis or enteritis. No constipation is seen. Appendix is not identified but no pericecal inflammation is seen.No abnormalities are seen of the reproductive organs.Abdominal aorta is normal in size.No suspicious lymphadenopathy.No free intraperitoneal air or fluid is seen.Prior fusion at L5-S1 with right-sided pedicle screws and rosalva. Slight anterolisthesis of on S1 is unchanged.IMPRESSIONPossible mild jejunitis or enteritis changes. This may be a chronic appearance. Consider possible IBS or food intolerance.No urinary tract abnormalities are seen.Electronically signed by: Dipak Daugherty (July 11, 2021 12:41:24)
--- NOTE | 2021-07-11 14:24 | CT ---
HISTORYSYNCOPE.SWELLING AND PAINSTUDYCT facial bones without IV contrastCOMPARISONCT sinuses 05/31/2020TECHNIQUEMultiple axial images of the facial structures were obtained from the mandible to superior portions of the orbits. Study is performed without IV contrast. Dose reduction techniques including Automated Exposure Control (AEC) and adjustment of mA and kV were utilized.FINDINGSPrior ethmoidectomies and maxillary antrectomies. No evidence of acute or chronic sinusitis. Middle ears and mastoid air cells appear clear of fluid. Globes appear symmetric. Extra-ocular muscles appear normal in size.There is mild subcutaneous edema in the left cheek and left periorbital region. No suggestion of foreign body, gas, or focal fluid collection is seen. No facial bone fracture is seen. Likely motion related artifacts are seen in both mandibular condyles.There is a 6 mm dentigerous cyst or periapical abscess associated with the posterior left maxillary molar teeth root. This has slight cortical breakthrough medially, distant from the edema in the face.IMPRESSIONMild subcutaneous edema is seen in the left cheek and left periorbital region. This could be bland edema, ecchymosis, or cellulitis.Electronically signed by: Dipak Daugherty (July 11, 2021 14:22:45)
[2021-07-12] MEDS: NS 1,000 ML IV 1,000 ML IV SCH ×4 (00:27→18:12)
[2021-07-12] MEDS: DEMEROL INJ IVP PRN ×4 (03:53→22:38)
[2021-07-12] MEDS: PHENERGAN INJ 25 MG IM PRN ×4 (03:53→22:38)
[2021-07-12 05:07] LABS: BASOPHILS % (AUTO) 0.5 % (0.2-1.0); EOSINOPHILS # (AUTO) 0.1 x10^3/uL (0.0-0.2); EOSINOPHILS % (AUTO) 2.1 % (0.9-2.9); HEMATOCRIT 34.4 % (36.0-47.0); HEMOGLOBIN 12.4 g/dL (12.0-16.0); LYMPHOCYTES # (AUTO) 1.5 X10^3/uL (1.3-2.9); LYMPHOCYTES % (AUTO) 23.4 % (21.0-51.0); MEAN CORPUSCULAR HEMOGLOBIN 29.9 pg (27.0-34.0); MEAN CORPUSCULAR HGB CONC 36.1 g/dL (33.0-35.0); MEAN CORPUSCULAR VOLUME 82.9 fL (80.0-100.0); MEAN PLATELET VOLUME 10.1 fL (7.4-11.0); MONOCYTES # (AUTO) 0.7 x10^3/uL (0.3-0.8); MONOCYTES % (AUTO) 10.2 % (0.0-13.0); NEUTROPHILS # (AUTO) 4.2 x10^3/uL (2.2-4.8); NEUTROPHILS % (AUTO) 63.8 % (42.0-75.0); RED BLOOD COUNT 4.15 X10^6/uL (3.5-5.4); RED CELL DISTRIBUTION WIDTH 13.6 % (11.6-16.5); WHITE BLOOD COUNT 6.5 X10^3/uL (3.6-10.0)
[2021-07-12 05:35] LABS: ALANINE AMINOTRANSFERASE 40 Units/L (12-78); ALBUMIN 2.6 g/dL (3.4-5.0); ALKALINE PHOSPHATASE 144 Units/L (46-116); ASPARTATE AMINO TRANSFERASE 48 Units/L (15-37); BLOOD UREA NITROGEN 8 mg/dL (7-18); CALCIUM 8.1 mg/dL (8.5-10.1); CARBON DIOXIDE 28.1 mmol/L (21-32); CHLORIDE 105 mmol/L (98-107); COR CA(FOR HYPOALB) 9.2 mg/dL (8.5-10.1); COR NA(FOR HYPERGLY) 140 mmol/L (136-145); CREATININE 1.01 mg/dL (0.55-1.02); SODIUM 140 mmol/L (136-145); TOTAL PROTEIN 5.3 g/dL (6.4-8.2); eGFR NON BLACK RACES > 60 (>60)
[2021-07-12] MEDS: ROCEPHIN VIAL 1 GRAM 1 G in NS 100 ML IV 100 ML IV SCH (09:40)
[2021-07-12] MEDS: PEPCID 20 MG VIAL 20 MG in NS 50 ML IV 50 ML IV SCH ×2 (14:10→20:48)
--- NOTE | 2021-07-12 14:10 | DR.UPDATE ---
H&P Update History and Physical Update: History and Physical reviewed and patient examined. Changes noted: NO Yes with the following: WAS A DIRECT ADMISSION, INPATIENT STATUS, FOR INTRACTABLE LEFT FLANK PAIN, LOW BACK PAIN, SUPRAPUBIC PAIN, NAUSEA, VOMITING, AND BLOOD IN URINE. PATIENT HAS A HISTORY OF KIDNEY STONES. SHE WAS ADMITTED TO THE HOSPITAL FOR FURTHER TREATMENT AND EVALUTION. ON ADMISSION, WE PLAN TO OBTAIN A CBC, CMP, UA, URINE CULTURE, AND ABDOMEN/PELVIS CT WITHOUT CONTRAST FOR STONE SEARCH. OTHERW ISE, WE WILL FOLLOW-UP WITH AM LABS AND CONTINUE TO MONITOR. H&P Reviewed: Yes Patient was examined?: Yes
[2021-07-12] MEDS: COLACE CAP 100 MG PO SCH (14:11)
[2021-07-12] MEDS: PROTONIX INJ 40 MG VIAL IVP SCH ×2 (14:11→20:48)
[2021-07-12] MEDS: TORADOL 30 MG VIAL IVP PRN (19:28)
[2021-07-13] MEDS: NS 1,000 ML IV 1,000 ML IV SCH ×5 (02:27→19:37)
[2021-07-13] MEDS: DEMEROL INJ IVP PRN ×4 (04:53→23:03)
[2021-07-13] MEDS: PHENERGAN INJ 25 MG IM PRN ×4 (04:53→23:04)
[2021-07-13 05:41] LABS: BASOPHILS % (AUTO) 0.7 % (0.2-1.0); EOSINOPHILS # (AUTO) 0.2 x10^3/uL (0.0-0.2); EOSINOPHILS % (AUTO) 3.7 % (0.9-2.9); HEMATOCRIT 34.2 % (36.0-47.0); HEMOGLOBIN 12.3 g/dL (12.0-16.0); LYMPHOCYTES # (AUTO) 1.6 X10^3/uL (1.3-2.9); LYMPHOCYTES % (AUTO) 28.4 % (21.0-51.0); MEAN CORPUSCULAR VOLUME 83.4 fL (80.0-100.0); MONOCYTES # (AUTO) 0.5 x10^3/uL (0.3-0.8); MONOCYTES % (AUTO) 9.2 % (0.0-13.0); NEUTROPHILS # (AUTO) 3.3 x10^3/uL (2.2-4.8); RED CELL DISTRIBUTION WIDTH 13.5 % (11.6-16.5); WHITE BLOOD COUNT 5.8 X10^3/uL (3.6-10.0)
[2021-07-13 05:48] LABS: ALANINE AMINOTRANSFERASE 40 Units/L (12-78); ALBUMIN 2.5 g/dL (3.4-5.0); ALKALINE PHOSPHATASE 153 Units/L (46-116); ASPARTATE AMINO TRANSFERASE 48 Units/L (15-37); BLOOD UREA NITROGEN 7 mg/dL (7-18); CALCIUM 7.9 mg/dL (8.5-10.1); CARBON DIOXIDE 28.2 mmol/L (21-32); CHLORIDE 110 mmol/L (98-107); COR CA(FOR HYPOALB) 9.1 mg/dL (8.5-10.1); CREATININE 1.01 mg/dL (0.55-1.02); SODIUM 144 mmol/L (136-145); TOTAL PROTEIN 5.2 g/dL (6.4-8.2); eGFR NON BLACK RACES > 60 (>60)
[2021-07-13] MEDS: K-RIDER 10 MEQ/NS 100 ML 10 MEQ/100 ML BAG IV PRN ×2 (06:32→07:45)
[2021-07-13] MEDS: COLACE CAP 100 MG PO SCH (08:03)
[2021-07-13] MEDS: NORCO 5/325 MG TAB PO PRN ×2 (08:04→19:37)
[2021-07-13] MEDS: PEPCID 20 MG VIAL 20 MG in NS 50 ML IV 50 ML IV SCH ×2 (08:09→20:02)
[2021-07-13] MEDS: PROTONIX INJ 40 MG VIAL IVP SCH ×2 (08:10→20:02)
[2021-07-13] MEDS: ROCEPHIN VIAL 1 GRAM 1 G in NS 100 ML IV 100 ML IV SCH (08:10)
[2021-07-13] MEDS: ZOFRAN INJ 4 MG VIAL IVP PRN ×2 (08:54→19:55)
[2021-07-13] MEDS: TORADOL 30 MG VIAL IVP PRN (15:26)
[2021-07-14] MEDS: NS 1,000 ML IV 1,000 ML IV SCH ×4 (00:01→18:49)
[2021-07-14 05:06] LABS: BASOPHILS % (AUTO) 0.7 % (0.2-1.0); EOSINOPHILS # (AUTO) 0.3 x10^3/uL (0.0-0.2); EOSINOPHILS % (AUTO) 5.2 % (0.9-2.9); HEMATOCRIT 33.2 % (36.0-47.0); HEMOGLOBIN 11.8 g/dL (12.0-16.0); LYMPHOCYTES # (AUTO) 1.4 X10^3/uL (1.3-2.9); MEAN CORPUSCULAR HGB CONC 35.7 g/dL (33.0-35.0); MEAN CORPUSCULAR VOLUME 84.2 fL (80.0-100.0); MEAN PLATELET VOLUME 10.2 fL (7.4-11.0); MONOCYTES # (AUTO) 0.4 x10^3/uL (0.3-0.8); MONOCYTES % (AUTO) 7.3 % (0.0-13.0); NEUTROPHILS % (AUTO) 58.8 % (42.0-75.0); RED BLOOD COUNT 3.94 X10^6/uL (3.5-5.4); RED CELL DISTRIBUTION WIDTH 13.6 % (11.6-16.5)
[2021-07-14] MEDS: DEMEROL INJ IVP PRN ×4 (05:09→23:51)
[2021-07-14] MEDS: PHENERGAN INJ 25 MG IM PRN ×4 (05:10→23:51)
[2021-07-14 05:12] LABS: ALANINE AMINOTRANSFERASE 30 Units/L (12-78); ALBUMIN 2.4 g/dL (3.4-5.0); ALKALINE PHOSPHATASE 146 Units/L (46-116); ASPARTATE AMINO TRANSFERASE 34 Units/L (15-37); BLOOD UREA NITROGEN 7 mg/dL (7-18); CARBON DIOXIDE 26.5 mmol/L (21-32); CHLORIDE 109 mmol/L (98-107); COR CA(FOR HYPOALB) 9.3 mg/dL (8.5-10.1); CREATININE 1.04 mg/dL (0.55-1.02); SODIUM 142 mmol/L (136-145); TOTAL PROTEIN 5.1 g/dL (6.4-8.2); eGFR NON BLACK RACES > 60 (>60)
[2021-07-14] MEDS: PEPCID 20 MG VIAL 20 MG in NS 50 ML IV 50 ML IV SCH ×2 (08:34→20:24)
[2021-07-14] MEDS: ROCEPHIN VIAL 1 GRAM 1 G in NS 100 ML IV 100 ML IV SCH (08:34)
[2021-07-14] MEDS: COLACE CAP 100 MG PO SCH (08:34)
[2021-07-14] MEDS: PROTONIX INJ 40 MG VIAL IVP SCH ×2 (08:34→20:24)
[2021-07-14] MEDS: ALBUMIN HUMAN 25%- 100 ML 100 ML IV SCH (10:54)
[2021-07-15] MEDS: NS 1,000 ML IV 1,000 ML IV SCH ×2 (00:45→09:27)
[2021-07-15 05:18] LABS: BASOPHILS % (AUTO) 0.7 % (0.2-1.0); EOSINOPHILS # (AUTO) 0.3 x10^3/uL (0.0-0.2); EOSINOPHILS % (AUTO) 4.1 % (0.9-2.9); HEMATOCRIT 33.2 % (36.0-47.0); HEMOGLOBIN 11.9 g/dL (12.0-16.0); LYMPHOCYTES # (AUTO) 1.2 X10^3/uL (1.3-2.9); LYMPHOCYTES % (AUTO) 18.6 % (21.0-51.0); MEAN CORPUSCULAR HEMOGLOBIN 29.8 pg (27.0-34.0); MEAN CORPUSCULAR HGB CONC 35.8 g/dL (33.0-35.0); MEAN CORPUSCULAR VOLUME 83.3 fL (80.0-100.0); MEAN PLATELET VOLUME 9.8 fL (7.4-11.0); MONOCYTES # (AUTO) 0.5 x10^3/uL (0.3-0.8); MONOCYTES % (AUTO) 7.1 % (0.0-13.0); NEUTROPHILS # (AUTO) 4.4 x10^3/uL (2.2-4.8); NEUTROPHILS % (AUTO) 69.5 % (42.0-75.0); RED BLOOD COUNT 3.99 X10^6/uL (3.5-5.4); RED CELL DISTRIBUTION WIDTH 12.9 % (11.6-16.5); WHITE BLOOD COUNT 6.4 X10^3/uL (3.6-10.0)
[2021-07-15 05:35] LABS: ALANINE AMINOTRANSFERASE 25 Units/L (12-78); ALBUMIN 2.7 g/dL (3.4-5.0); ALKALINE PHOSPHATASE 136 Units/L (46-116); ASPARTATE AMINO TRANSFERASE 38 Units/L (15-37); BLOOD UREA NITROGEN 5 mg/dL (7-18); CALCIUM 7.9 mg/dL (8.5-10.1); CARBON DIOXIDE 26.3 mmol/L (21-32); CHLORIDE 108 mmol/L (98-107); COR CA(FOR HYPOALB) 8.9 mg/dL (8.5-10.1); CREATININE 1.08 mg/dL (0.55-1.02); SODIUM 141 mmol/L (136-145); TOTAL PROTEIN 5.2 g/dL (6.4-8.2); eGFR NON BLACK RACES 58 (>60)
[2021-07-15] MEDS: K-DUR TAB 20 MEQ PO PRN ×2 (05:55→11:29)
[2021-07-15] MEDS: PHENERGAN INJ 25 MG IM PRN ×2 (05:55→13:07)
[2021-07-15] MEDS: DEMEROL INJ IVP PRN ×2 (05:56→13:08)
[2021-07-15] MEDS: MAGNESIUM SULFATE 1 GRAM/100 mL PREMIX 1 G/100 ML BAG IV PRN ×2 (06:16→10:00)
[2021-07-15] MEDS: PROTONIX INJ 40 MG VIAL IVP SCH (08:15)
[2021-07-15] MEDS: PEPCID 20 MG VIAL 20 MG in NS 50 ML IV 50 ML IV SCH (08:15)
[2021-07-15] MEDS: ROCEPHIN VIAL 1 GRAM 1 G in NS 100 ML IV 100 ML IV SCH (08:15)
[2021-07-15] MEDS: ALBUMIN HUMAN 25%- 100 ML 100 ML IV SCH (08:15)
[2021-07-15] MEDS: COLACE CAP 100 MG PO SCH (08:16)
[2021-07-15] MEDS ORDERED: FLOMAX PO NR (10:15)
[2021-07-15] MEDS: TORADOL 30 MG VIAL IVP PRN ×2 (10:35→11:27)
[2021-07-15 13:03] VITALS: BP 118/77
[2021-07-15] MEDS ORDERED: PEPCID TAB 20 MG PO SCH (21:00)
== END 2021-07-15 14:45 | disposition home or self-care (01) | DRG 392 ==
LOC: MED/SURG → OBSVTOIN 16:36
PROVIDERS: ADMIT Internal Medicine; ATTEND Internal Medicine
DX: Z20.822 Contact with and (suspected) exposure to COVID-19; R10.9 Unspecified abdominal pain; E87.6 Hypokalemia; H57.12 Ocular pain, left eye; Z87.442 Personal history of urinary calculi; H02.846 Edema of left eye, unspecified eyelid; K52.9 Noninfective gastroenteritis and colitis, unspecified; R55 Syncope and collapse; E86.0 Dehydration

== ENCOUNTER 2021-08-25 12:03 | Observation (INO) ==
[2021-08-25] MEDS ORDERED: FIORICET TAB PO ONE ×2 (12:22→12:33)
[2021-08-25] MEDS ORDERED: ZOFRAN INJ 4 MG VIAL ONE ×2 (12:22→16:59)
[2021-08-25] MEDS ORDERED: NS 1,000 ML IV 1,000 ML ONE ×2 (12:22→18:13)
[2021-08-25] MEDS ORDERED: ZOFRAN INJ 4 MG VIAL IVP ONE ×2 (12:32→23:02)
[2021-08-25] MEDS ORDERED: NS 1,000 ML IV 1,000 ML IV ONE (12:32)
--- NOTE | 2021-08-25 12:45 | DR.SEIZA ---
HPI Time Seen Time Seen by Provider: 08/25/21 12:43 Primary Care Physician Primary Care Physician: LEA HPI Comment HPI Comment: She seems to be dehydrated, she is having muscle cramps. Also on the way here to the ED, he reported that she has a few seconds of seizures - that is not well described. Reviewed Nurses Notes Reviewed: Yes Context Prior to Seizure:: Normal During Seizure: negative None, Awake, LOC, Bladder Incontinence, Bowel Incontinence, Tongue Trauma, Head Trauma or Shoulder Trauma Immediately After Seizure: Confusion History of:: None Associated Signs and Symptoms Associated Signs and Symptoms:: None PMH PMH Past Medical History: Anxiety, Hypothyroidism and Kidney Stones Past Surgical History: Yes Surgical History: Abdominal Surgery, Appendectomy, Cholecystectomy and Hysterectomy Family History Family Medical History: Hypertension Social History Do you use any recreational Drugs:: No Travel Risk Coronavirus risk:travel/contact w/high risk person: No Has patient experienced Coronavirus symptoms: No ROS Review of Systems Constitutional: No Symptoms Reported Eyes: No Symptoms Reported ENTM: No Symptoms Reported Respiratoy: No Symptoms Reported Cardiovascular: No Symptoms Reported Gastrointestinal/Abdominal: No Symptoms Reported Genitourinary: No Symptoms Reported Neurological: No Symptoms Reported Musculoskeletal: No Symptoms Reported Integumentary: No Symptoms Reported Hematologic/Lymphatic: No Symptoms Reported Endocrine: No Symptoms Reported PE Vital Signs Vitals: Pulse Rate 104 Respiratory Rate 24 Blood Pressure [Right Arm] 121/56 Blood Pressure 113/68 O2 Sat by Pulse Oximetry 100 General Limitations: No Limitations General Appearance: Alert and In No Apparent Distress Head Head Exam: Normal Inspection and Atraumatic Eyes Eye exam: Normal Appearance and EOMI ENT ENT Exam: Normal Exam, Normal Oropharynx, Normal External Ear Exam and Mucous Membranes Moist Neck Neck Exam: Normal Inspection, Full ROM and Trachea Midline Chest Chest Inspection: Normal Inspection and Symmetric Chest Wall Rise Respiratory Respiratory Exam: Normal Lung Sounds Bilat Cardiovascular Cardiovascular Exam: Regular Rate, Normal Rhythm, Normal Heart Sounds, +S1 and +S2 Abdominal Exam Abdominal Exam: Normal Inspection, Normal Bowel Sounds and Soft Extremities Extremities Exam: Normal Inspection and Full ROM Back Back Exam: Normal Inspection and Full ROM Neurologic Neurological Exam: Alert and Oriented X3 Psychiatric Psychiatric Exam: Normal Affect and Normal Mood Skin Skin Exam: Intact COURSE Treatment Treatment: Her spouse had come to get the nurses attention that she was having anothe seizure episode. When we got in the room, she was siiting with her back reclined in bed. Her skin was quite flushed, she was staring into space but responds to verbal inquiry. Ther was incontinence of urin or feces notes. Earlier, her physician, Dr. Fernandez had called to request that she be admitted into the hospital for him. Later, when diagnostic test results became available, I did come back to inform the pt. and her spouse of the results. She had K+ rider ordered, and had Valium adminstered earlier. Reevaluation 1st: Improved Education/Counseling Education/Counseling: Patient, Family, Education and Counseling Educated On: Treatment, Diagnosis, Prognosis and Needs for Follow Up ROR Labs Reviewed Result Diagrams: 08/25/21 12:22 08/25/21 17:35 Laboratory: WBC 11.3 X10^3/uL (3.6-10.0) H 08/25/21 12:22 RBC 6.11 X10^6/uL (3.5-5.4) H 08/25/21 12:22 Hgb 17.8 g/dL (12.0-16.0) H 08/25/21 12:22 Hct 50.3 % (36.0-47.0) H 08/25/21 12:22 MCV 82.3 fL (80.0-100.0) 08/25/21 12:22 MCH 29.2 pg (27.0-34.0) 08/25/21 12:22 MCHC 35.5 g/dL (33.0-35.0) H 08/25/21 12:22 RDW 12.9 % (11.6-16.5) 08/25/21 12:22 Plt Count 306 X10^3/uL (150.0-450.0) 08/25/21 12:22 MPV 10.5 fL (7.4-11.0) 08/25/21 12:22 Neut % (Auto) 78.2 % (42.0-75.0) H 08/25/21 12:22 Lymph % (Auto) 13.3 % (21.0-51.0) L 08/25/21 12:22 [place] % (Auto) 7.5 % (0.0-13.0) 08/25/21 12:22 Eos % (Auto) 0.2 % (0.9-2.9) L 08/25/21 12:22 Baso % (Auto) 0.8 % (0.2-1.0) 08/25/21 12:22 Neut # (Auto) 8.8 x10^3/uL (2.2-4.8) H 08/25/21 12:22 Lymph # (Auto) 1.5 X10^3/uL (1.3-2.9) 08/25/21 12:22 [place] # (Auto) 0.8 x10^3/uL (0.3-0.8) 08/25/21 12:22 Eos # (Auto) 0.0 x10^3/uL (0.0-0.2) 08/25/21 12:22 Baso # (Auto) 0.1 X10^3/uL (0.0-0.1) 08/25/21 12:22 Absolute Nucleated RBC 0.2 /100WBC 08/25/21 12:22 Sodium 129 mmol/L (136-145) L 08/25/21 12:22 Corrected Sodium 130 mmol/L (136-145) L 08/25/21 12:22 Potassium 2.5 mmol/L (3.5-5.1) L* 08/25/21 12:22 Chloride 85 mmol/L (98-107) L 08/25/21 12:22 Carbon Dioxide 34.0 mmol/L (21-32) H 08/25/21 12:22 BUN 36 mg/dL (7-18) H 08/25/21 12:22 Creatinine 1.76 mg/dL (0.55-1.02) H 08/25/21 12:22 Est GFR (MDRD) Af Amer 40 (>60) L 08/25/21 12:22 Est GFR (MDRD) Non-Af 33 (>60) L 08/25/21 12:22 Glucose 138 mg/dL (65-99) H 08/25/21 12:22 POC Glucose (mg/dL) 147 mg/dL (65-99) H 08/25/21 12:27 Calcium 10.0 mg/dL (8.5-10.1) 08/25/21 12:22 Corrected Calcium TNP 08/25/21 12:22 Phosphorus 4.3 mg/dL (2.6-4.7) 08/25/21 12:22 Magnesium 2.1 mg/dL (1.7-2.9) 08/25/21 12:22 Total Bilirubin 0.90 mg/dL (0.2-1.0) 08/25/21 12:22 AST 32 Units/L (15-37) 08/25/21 12:22 ALT 64 Units/L (12-78) 08/25/21 12:22 Alkaline Phosphatase 269 Units/L (46-116) H 08/25/21 12:22 Total Protein 9.3 g/dL (6.4-8.2) H 08/25/21 12:22 Albumin 4.8 g/dL (3.4-5.0) 08/25/21 12:22 Globulin 4.5 g/dL (2.5-4.5) 08/25/21 12:22 Albumin/Globulin Ratio 1.1 Ratio (1.1-2.1) 08/25/21 12:22 Opioid Opioid Risk Tool Age (Josue box if 16-45): No History of Preadolescent Sexual Abuse: No Total: 0 Total Score Risk Category: Low Risk Copyright: Zak JARAMILLO predicting aberrant behaviors Discharge Plan Diagnosis Discharge Problem: Seizure, Acute dehydration, Acute hyponatremia, Hypokalemia Discharge Plan Patient Disposition: ADMITTED INPATIENT Condition: Stable
[2021-08-25] MEDS ORDERED: TORADOL 30 MG VIAL ONE (12:59)
[2021-08-25] MEDS ORDERED: VALIUM INJ ONE (13:12)
[2021-08-25 13:15] LABS: ALANINE AMINOTRANSFERASE 64 Units/L (12-78); ALBUMIN 4.8 g/dL (3.4-5.0); ALKALINE PHOSPHATASE 269 Units/L (46-116); ASPARTATE AMINO TRANSFERASE 32 Units/L (15-37); BLOOD UREA NITROGEN 36 mg/dL (7-18); CHLORIDE 85 mmol/L (98-107); COR NA(FOR HYPERGLY) 130 mmol/L (136-145); CREATININE 1.76 mg/dL (0.55-1.02); SODIUM 129 mmol/L (136-145); TOTAL PROTEIN 9.3 g/dL (6.4-8.2); eGFR NON BLACK RACES 33 (>60)
[2021-08-25] MEDS ORDERED: VALIUM INJ IVP ONE (13:15)
[2021-08-25] MEDS ORDERED: TORADOL 30 MG VIAL IVP ONE (13:17)
[2021-08-25] MEDS ORDERED: K-RIDER 10 MEQ/NS 100 ML 10 MEQ/100 ML BAG IV ONE ×3 (13:19→13:55)
[2021-08-25 13:35] LABS: BASOPHILS # (AUTO) 0.1 X10^3/uL (0.0-0.1); BASOPHILS % (AUTO) 0.8 % (0.2-1.0); EOSINOPHILS % (AUTO) 0.2 % (0.9-2.9); HEMATOCRIT 50.3 % (36.0-47.0); HEMOGLOBIN 17.8 g/dL (12.0-16.0); LYMPHOCYTES # (AUTO) 1.5 X10^3/uL (1.3-2.9); LYMPHOCYTES % (AUTO) 13.3 % (21.0-51.0); MEAN CORPUSCULAR HEMOGLOBIN 29.2 pg (27.0-34.0); MEAN CORPUSCULAR HGB CONC 35.5 g/dL (33.0-35.0); MEAN CORPUSCULAR VOLUME 82.3 fL (80.0-100.0); MEAN PLATELET VOLUME 10.5 fL (7.4-11.0); MONOCYTES # (AUTO) 0.8 x10^3/uL (0.3-0.8); MONOCYTES % (AUTO) 7.5 % (0.0-13.0); NEUTROPHILS # (AUTO) 8.8 x10^3/uL (2.2-4.8); NEUTROPHILS % (AUTO) 78.2 % (42.0-75.0); RED BLOOD COUNT 6.11 X10^6/uL (3.5-5.4); RED CELL DISTRIBUTION WIDTH 12.9 % (11.6-16.5); WHITE BLOOD COUNT 11.3 X10^3/uL (3.6-10.0)
[2021-08-25 13:47] LABS: MAGNESIUM 2.1 mg/dL (1.7-2.9); PHOSPHORUS 4.3 mg/dL (2.6-4.7)
--- NOTE | 2021-08-25 14:20 | CT ---
HISTORYseizureSTUDYBRAIN W/O [id number]/30/2021TECHNIQUE r including Automated Exposure Control (AEC) and adjustment of mA and kV were utilized.Contrast: NoneFINDINGSBRAIN PARENCHYMA: No acute hemorrhage, infarct, mass, or mass effect.Taylor-white differentiation is maintained.VENTRICLES/EXTRA-AXIAL SPACES: Normal size and configuration. No hydrocephalus or extra-axial fluid collections.EXTRACRANIAL STRUCTURES:Normal bones and soft tissues. Visualized paranasal sinuses and mastoids are clear.IMPRESSIONNo acute intracranial findings. MRI is more sensitive for acute infarct.Electronically signed by: Guevara Scott (Aug 25, 2021 14:19:20)
[2021-08-25] MEDS ORDERED: NS 250 ML IV 250 ML IV ONE (15:59)
[2021-08-25] MEDS: ZOFRAN INJ 4 MG VIAL IVP PRN ×2 (17:03→22:03)
[2021-08-25 17:16] VITALS: BMI 25.7
[2021-08-25 17:18] LABS: BILIRUBIN,URINE NEGATIVE (NEGATIVE); BLOOD/HEMOGLOBIN,URINE 5+ (NEGATIVE); GLUCOSE, URINE NEGATIVE (NEGATIVE); KETONES,URINE NEGATIVE (NEGATIVE); LEUKOCYTE ESTERASE ,URINE 1+ (NEGATIVE); NITRITES,URINE NEGATIVE (NEGATIVE); PROTEIN,URINE 1+ (NEGATIVE); UROBILINOGEN,URINE NORMAL (NORMAL)
[2021-08-25 17:20] LABS: COLOR,URINE YELLOW (YELLOW)
[2021-08-25 17:21] LABS: APPEARANCE,URINE CLEAR (CLEAR)
[2021-08-25 17:27] LABS: BACTERIA,URINE TRACE /HPF (NEGATIVE); SQUAMOUS EPITHELIAL CELL,UR MODERATE /HPF (NEGATIVE)
[2021-08-25] MEDS ORDERED: MICRO K EXTEN CAP 10 MEQ PO PRN (17:56)
[2021-08-25] MEDS ORDERED: POTASSIUM CHL 40 MEQ/NS 0.45% 500 ML IV PRN (17:56)
[2021-08-25] MEDS ORDERED: POTASSIUM CHL 60 MEQ/NS 0.45% 500 ML IV PRN (17:56)
[2021-08-25] MEDS ORDERED: POTASSIUM CHLORIDE LIQ 20 MEQ UDC PO PRN (17:56)
[2021-08-25] MEDS: NS 1,000 ML IV 1,000 ML IV SCH ×3 (18:20→23:49)
[2021-08-25] MEDS: K-RIDER 10 MEQ/NS 100 ML 10 MEQ/100 ML BAG IV PRN ×2 (18:20→23:11)
[2021-08-25] MEDS: MORPHINE SULFATE INJ 2 MG INJ IVP PRN ×2 (18:20→21:46)
--- NOTE | 2021-08-25 19:10 | DR.H&P ---
H&P History & Physical for Day of: H&P Date: 08/25/21 Chief Complaint Chief Complaint: Muscle cramping/possible seizure Allergies Allergies Allergy/AdvReac Type Severity Reaction Status Date / Time No Known Drug Allergies Allergy Verified 02/14/21 10:22 History of Present Illness History of Present Illness: This is a 46-year-old white female who comes in complaining of severe muscle cramping weakness and not able to keep anything down her stomach. She reports having some abdominal pain and history of abdominal adhesions from previous surgery. There is suggestion that she may have had a possible short seizure in the emergency department but it only lasts a few seconds uncertain if she actually had a true seizure or not. She did have a CT of the brain today which did not indicate any acute problems. Is also noted that she her hemoglobin is elevated at 17.8. Past Medical History Past Medical History: Hypothyroidism and Kidney Stones Additional Medical History: Hypokalemia Past Surgical History Surgical History: Abdominal Surgery, Appendectomy, Cholecystectomy and Hysterectomy Family History Family Medical History: Hypertension Social History Does patient currently use any type of tobacco product: No Have you used tobacco products in the last 12 months: No Type of Tobacco Use: None Does any household member use tobacco: No Alcohol Use: Rarely Drug Use: None Medications Home Medications: No Known Drug Allergies Allergy (Verified 02/14/21 10:22) Labs Result Diagrams: 08/25/21 12:22 08/25/21 17:35 Labs: Laboratory WBC 11.3 X10^3/uL (3.6-10.0) H 08/25/21 12:22 RBC 6.11 X10^6/uL (3.5-5.4) H 08/25/21 12:22 Hgb 17.8 g/dL (12.0-16.0) H 08/25/21 12:22 Hct 50.3 % (36.0-47.0) H 08/25/21 12:22 MCV 82.3 fL (80.0-100.0) 08/25/21 12:22 MCH 29.2 pg (27.0-34.0) 08/25/21 12:22 MCHC 35.5 g/dL (33.0-35.0) H 08/25/21 12:22 RDW 12.9 % (11.6-16.5) 08/25/21 12:22 Plt Count 306 X10^3/uL (150.0-450.0) 08/25/21 12:22 MPV 10.5 fL (7.4-11.0) 08/25/21 12:22 Neut % (Auto) 78.2 % (42.0-75.0) H 08/25/21 12:22 Lymph % (Auto) 13.3 % (21.0-51.0) L 08/25/21 12:22 [place] % (Auto) 7.5 % (0.0-13.0) 08/25/21 12:22 Eos % (Auto) 0.2 % (0.9-2.9) L 08/25/21 12:22 Baso % (Auto) 0.8 % (0.2-1.0) 08/25/21 12:22 Neut # (Auto) 8.8 x10^3/uL (2.2-4.8) H 08/25/21 12:22 Lymph # (Auto) 1.5 X10^3/uL (1.3-2.9) 08/25/21 12:22 [place] # (Auto) 0.8 x10^3/uL (0.3-0.8) 08/25/21 12:22 Eos # (Auto) 0.0 x10^3/uL (0.0-0.2) 08/25/21 12:22 Baso # (Auto) 0.1 X10^3/uL (0.0-0.1) 08/25/21 12:22 Absolute Nucleated RBC 0.2 /100WBC 08/25/21 12:22 Sodium 129 mmol/L (136-145) L 08/25/21 12:22 Corrected Sodium 130 mmol/L (136-145) L 08/25/21 12:22 Potassium 2.4 mmol/L (3.5-5.1) L* 08/25/21 17:35 Chloride 85 mmol/L (98-107) L 08/25/21 12:22 Carbon Dioxide 34.0 mmol/L (21-32) H 08/25/21 12:22 BUN 36 mg/dL (7-18) H 08/25/21 12:22 Creatinine 1.76 mg/dL (0.55-1.02) H 08/25/21 12:22 Est GFR (MDRD) Af Amer 40 (>60) L 08/25/21 12:22 Est GFR (MDRD) Non-Af 33 (>60) L 08/25/21 12:22 Glucose 138 mg/dL (65-99) H 08/25/21 12:22 POC Glucose (mg/dL) 147 mg/dL (65-99) H 08/25/21 12:27 Calcium 10.0 mg/dL (8.5-10.1) 08/25/21 12:22 Corrected Calcium TNP 08/25/21 12:22 Phosphorus 4.3 mg/dL (2.6-4.7) 08/25/21 12:22 Magnesium 2.1 mg/dL (1.7-2.9) 08/25/21 12:22 Total Bilirubin 0.90 mg/dL (0.2-1.0) 08/25/21 12:22 AST 32 Units/L (15-37) 08/25/21 12:22 ALT 64 Units/L (12-78) 08/25/21 12:22 Alkaline Phosphatase 269 Units/L (46-116) H 08/25/21 12:22 Total Protein 9.3 g/dL (6.4-8.2) H 08/25/21 12:22 Albumin 4.8 g/dL (3.4-5.0) 08/25/21 12:22 Globulin 4.5 g/dL (2.5-4.5) 08/25/21 12:22 Albumin/Globulin Ratio 1.1 Ratio (1.1-2.1) 08/25/21 12:22 Specimen Type Clean catch urine 08/25/21 16:30 Urine Color Yellow (YELLOW) 08/25/21 16:30 Urine Appearance Clear (CLEAR) 08/25/21 16:30 Urine pH 6.0 (5.0 - 8.0) 08/25/21 16:30 Ur Specific [place] 1.015 (1.000-1.030) 08/25/21 16:30 Urine Protein 1+ (NEGATIVE) 08/25/21 16:30 Urine Glucose (UA) Negative (NEGATIVE) 08/25/21 16:30 Urine Ketones Negative (NEGATIVE) 08/25/21 16:30 Urine Blood 5+ (NEGATIVE) 08/25/21 16:30 Urine Nitrite Negative (NEGATIVE) 08/25/21 16:30 Urine Bilirubin Negative (NEGATIVE) 08/25/21 16:30 Urine Urobilinogen Normal (NORMAL) 08/25/21 16:30 Ur Leukocyte Esterase 1+ (NEGATIVE) 08/25/21 16:30 Urine RBC 5-10 /HPF (0-3) A 08/25/21 16:30 Urine WBC 0-2 /HPF (0-5) 08/25/21 16:30 Ur Squamous Epith Cells Moderate /HPF (NEGATIVE) 08/25/21 16:30 Amorphous Sediment Trace /HPF (NEGATIVE) 08/25/21 16:30 Urine Bacteria Trace /HPF (NEGATIVE) 08/25/21 16:30 Ur Culture Indicated? No/not indicated 08/25/21 16:30 Urine Opiates Screen Negative (NEG=<300) 08/25/21 16:30 Urine Methadone Screen Negative (NEG=<300) 08/25/21 16:30 Ur Barbiturates Screen Negative (NEG=<200) 08/25/21 16:30 Ur Phencyclidine Scrn Negative (NEG=<25) 08/25/21 16:30 Ur Amphetamines Screen Negative (NEG=<1000) 08/25/21 16:30 U Benzodiazepines Scrn Positive (NEG=<200) A 08/25/21 16:30 Urine Cocaine Screen Negative (NEG=<300) 08/25/21 16:30 U Marijuana (THC) Screen Negative (NEG=<50) 08/25/21 16:30 SARS-CoV-2 (PCR) Negative (NEGATIVE) 08/25/21 14:40 Review of Systems Constitutional: Weakness and Malaise Eyes: No Symptoms Reported ENT: No Symptoms Reported Respiratory: No Symptoms Reported Cardiovascular: No Symptoms Reported Gastrointestinal: Nausea and Vomiting Genitourinary: No Symptoms Reported Musculoskeletal: Arm Pain and Leg Pain Skin: No Symptoms Reported Neurological: Weakness Physical Exam Vital Signs: Temperature 98.2 F Pulse Rate [Left Brachial] 102 Pulse Rate 107 Respiratory Rate 20 Blood Pressure [Left Arm] 113/71 Blood Pressure [Right Arm] 121/56 Blood Pressure 113/68 O2 Sat by Pulse Oximetry 97 Oriented: Normal, Time, Person and Place Eyes: Normal Ear: Normal Nose: Normal Throat: Normal Respiratory: Clear Throughout Cardiovascular: Normal : Normal Auscultation: Bowel Sounds: Normal Palpation: Normal Tenderness: Diffuse Skin: Normal Musculoskeletal: Normal Psychiatric: Normal Mood Description: Anxious Affect: Anxious Speech Pattern: Clear and Appropriate Assessment/Plan (1) Seizure: Narrative Support Text: Possible seizure bilateral think it was a true seizure. Status: Acute Plan: We will monitor the patient overnight for observation and give her benzodiazepines for any breakthrough seizures. I will also check a urine drug screen to make sure that she has been taking an illicit substance and she could be possibly from a fall causing her to have these symptoms. (2) Acute dehydration: Status: Acute Plan: IV hydration (3) Acute hyponatremia: Status: Acute Plan: Normal saline IV. (4) Hypokalemia: Status: Acute Plan: Potassium replacement protocol. Review H&P Reviewed: Yes Patient was examined?: Yes
[2021-08-25] MEDS: PHENERGAN INJ 25 MG IM PRN (23:15)
[2021-08-26] MEDS: K-RIDER 10 MEQ/NS 100 ML 10 MEQ/100 ML BAG IV PRN ×8 (01:28→20:00)
[2021-08-26] MEDS: MORPHINE SULFATE INJ 2 MG INJ IVP PRN ×4 (03:11→20:53)
[2021-08-26] MEDS: NS 1,000 ML IV 1,000 ML IV SCH ×4 (04:55→16:19)
[2021-08-26] MEDS: PHENERGAN INJ 25 MG IM PRN ×2 (05:30→18:05)
[2021-08-26 06:18] LABS: BLOOD UREA NITROGEN 34 mg/dL (7-18); CARBON DIOXIDE 34.8 mmol/L (21-32); CHLORIDE 90 mmol/L (98-107); CREATININE 1.53 mg/dL (0.55-1.02); SODIUM 133 mmol/L (136-145); eGFR NON BLACK RACES 39 (>60)
[2021-08-26 06:40] LABS: BASOPHILS # (AUTO) 0.1 X10^3/uL (0.0-0.1); BASOPHILS % (AUTO) 0.9 % (0.2-1.0); EOSINOPHILS # (AUTO) 0.1 x10^3/uL (0.0-0.2); EOSINOPHILS % (AUTO) 0.9 % (0.9-2.9); HEMATOCRIT 43.9 % (36.0-47.0); HEMOGLOBIN 15.7 g/dL (12.0-16.0); LYMPHOCYTES # (AUTO) 1.8 X10^3/uL (1.3-2.9); LYMPHOCYTES % (AUTO) 25.4 % (21.0-51.0); MEAN CORPUSCULAR HEMOGLOBIN 29.7 pg (27.0-34.0); MEAN CORPUSCULAR HGB CONC 35.7 g/dL (33.0-35.0); MEAN CORPUSCULAR VOLUME 83.1 fL (80.0-100.0); MEAN PLATELET VOLUME 9.9 fL (7.4-11.0); MONOCYTES # (AUTO) 0.8 x10^3/uL (0.3-0.8); MONOCYTES % (AUTO) 10.4 % (0.0-13.0); NEUTROPHILS # (AUTO) 4.5 x10^3/uL (2.2-4.8); NEUTROPHILS % (AUTO) 62.4 % (42.0-75.0); RED BLOOD COUNT 5.29 X10^6/uL (3.5-5.4); WHITE BLOOD COUNT 7.3 X10^3/uL (3.6-10.0)
[2021-08-26 06:46] LABS: ALANINE AMINOTRANSFERASE 42 Units/L (12-78); ALBUMIN 3.7 g/dL (3.4-5.0); ALKALINE PHOSPHATASE 199 Units/L (46-116); ASPARTATE AMINO TRANSFERASE 24 Units/L (15-37); MAGNESIUM 2.2 mg/dL (1.7-2.9); TOTAL PROTEIN 7.4 g/dL (6.4-8.2)
[2021-08-26] MEDS: PROTONIX INJ 40 MG VIAL IVP SCH (08:36)
[2021-08-26] MEDS: ZOFRAN INJ 4 MG VIAL IVP PRN ×2 (12:50→21:16)
--- NOTE | 2021-08-26 16:58 | PCM.PROG ---
Progress Note Progress Note for Day of Date of Exam: 08/26/21 Subjective Subjective: Patient is alert and awake this morning. She had no significant problems throughout the night. She remains slightly hyponatremic and profoundly hypokalemic today. She has been receiving potassium since she came to the emergency department. But still at this time we have been unable to correct her hypokalemia. Her dehydration status is improved since admission and her vital signs are stable. Sodium today is 133 which is up from yesterday. At this time she is not having nausea or vomiting. Past Medical Family Social History Allergies: Allergies No Known Drug Allergies Allergy (Verified 02/14/21 10:22) Review of Systems ROS: No change since H&P Vital Signs and I&O's Vital Signs: Temperature 98.5 F Pulse Rate [Left Brachial] 90 Pulse Rate 107 Respiratory Rate 18 Blood Pressure [Left Arm] 151/76 Blood Pressure [Right Arm] 121/56 Blood Pressure 113/68 O2 Sat by Pulse Oximetry 96 Intake and Output: Intake & Output 08/24/21 08/25/21 08/26/21 08/27/21 11:59 11:59 11:59 11:59 Intake Total 1485 / 1485 420 / 420 Balance 1485 / 1485 420 / 420 Physical Exam Oriented: Normal, Time, Person and Place Eyes: Normal Ear: Normal Nose: Normal Throat: Normal Respiratory: Normal Cardiovascular: Normal : Normal Auscultation: Bowel Sounds: Normal Palpation: Normal Tenderness: Diffuse Skin: Normal Musculoskeletal: Normal Psychiatric: Normal Mood Description: Anxious Affect: Anxious Speech Pattern: Clear Laboratory and Diagnostics Result Diagrams: 08/26/21 05:18 08/26/21 05:18 Labs: Laboratory WBC 7.3 X10^3/uL (3.6-10.0) 08/26/21 05:18 RBC 5.29 X10^6/uL (3.5-5.4) 08/26/21 05:18 Hgb 15.7 g/dL (12.0-16.0) D 08/26/21 05:18 Hct 43.9 % (36.0-47.0) 08/26/21 05:18 MCV 83.1 fL (80.0-100.0) 08/26/21 05:18 MCH 29.7 pg (27.0-34.0) 08/26/21 05:18 MCHC 35.7 g/dL (33.0-35.0) H 08/26/21 05:18 RDW 13.0 % (11.6-16.5) 08/26/21 05:18 Plt Count 223 X10^3/uL (150.0-450.0) 08/26/21 05:18 MPV 9.9 fL (7.4-11.0) 08/26/21 05:18 Neut % (Auto) 62.4 % (42.0-75.0) 08/26/21 05:18 Lymph % (Auto) 25.4 % (21.0-51.0) 08/26/21 05:18 [place] % (Auto) 10.4 % (0.0-13.0) 08/26/21 05:18 Eos % (Auto) 0.9 % (0.9-2.9) 08/26/21 05:18 Baso % (Auto) 0.9 % (0.2-1.0) 08/26/21 05:18 Neut # (Auto) 4.5 x10^3/uL (2.2-4.8) 08/26/21 05:18 Lymph # (Auto) 1.8 X10^3/uL (1.3-2.9) 08/26/21 05:18 [place] # (Auto) 0.8 x10^3/uL (0.3-0.8) 08/26/21 05:18 Eos # (Auto) 0.1 x10^3/uL (0.0-0.2) 08/26/21 05:18 Baso # (Auto) 0.1 X10^3/uL (0.0-0.1) 08/26/21 05:18 Absolute Nucleated RBC 0.1 /100WBC 08/26/21 05:18 Sodium 133 mmol/L (136-145) L 08/26/21 05:18 Corrected Sodium TNP 08/26/21 05:18 Potassium 2.2 mmol/L (3.5-5.1) L* 08/26/21 05:18 Chloride 90 mmol/L (98-107) L 08/26/21 05:18 Carbon Dioxide 34.8 mmol/L (21-32) H 08/26/21 05:18 BUN 34 mg/dL (7-18) H 08/26/21 05:18 Creatinine 1.53 mg/dL (0.55-1.02) H 08/26/21 05:18 Est GFR (MDRD) Af Amer 47 (>60) L 08/26/21 05:18 Est GFR (MDRD) Non-Af 39 (>60) L 08/26/21 05:18 Glucose 87 mg/dL (65-99) 08/26/21 05:18 POC Glucose (mg/dL) 89 mg/dL (65-99) 08/26/21 12:23 Calcium 9.0 mg/dL (8.5-10.1) 08/26/21 05:18 Corrected Calcium TNP 08/26/21 05:18 Phosphorus 4.3 mg/dL (2.6-4.7) 08/25/21 12:22 Magnesium 2.2 mg/dL (1.7-2.9) 08/26/21 05:18 Total Bilirubin 1.00 mg/dL (0.2-1.0) 08/26/21 05:18 AST 24 Units/L (15-37) 08/26/21 05:18 ALT 42 Units/L (12-78) 08/26/21 05:18 Alkaline Phosphatase 199 Units/L (46-116) H 08/26/21 05:18 Total Protein 7.4 g/dL (6.4-8.2) 08/26/21 05:18 Albumin 3.7 g/dL (3.4-5.0) 08/26/21 05:18 Globulin 3.7 g/dL (2.5-4.5) 08/26/21 05:18 Albumin/Globulin Ratio 1.0 Ratio (1.1-2.1) L 08/26/21 05:18 Specimen Type Clean catch urine 08/25/21 16:30 Urine Color Yellow (YELLOW) 08/25/21 16:30 Urine Appearance Clear (CLEAR) 08/25/21 16:30 Urine pH 6.0 (5.0 - 8.0) 08/25/21 16:30 Ur Specific [place] 1.015 (1.000-1.030) 08/25/21 16:30 Urine Protein 1+ (NEGATIVE) 08/25/21 16:30 Urine Glucose (UA) Negative (NEGATIVE) 08/25/21 16:30 Urine Ketones Negative (NEGATIVE) 08/25/21 16:30 Urine Blood 5+ (NEGATIVE) 08/25/21 16:30 Urine Nitrite Negative (NEGATIVE) 08/25/21 16:30 Urine Bilirubin Negative (NEGATIVE) 08/25/21 16:30 Urine Urobilinogen Normal (NORMAL) 08/25/21 16:30 Ur Leukocyte Esterase 1+ (NEGATIVE) 08/25/21 16:30 Urine RBC 5-10 /HPF (0-3) A 08/25/21 16:30 Urine WBC 0-2 /HPF (0-5) 08/25/21 16:30 Ur Squamous Epith Cells Moderate /HPF (NEGATIVE) 08/25/21 16:30 Amorphous Sediment Trace /HPF (NEGATIVE) 08/25/21 16:30 Urine Bacteria Trace /HPF (NEGATIVE) 08/25/21 16:30 Ur Culture Indicated? No/not indicated 08/25/21 16:30 Urine Opiates Screen Negative (NEG=<300) 08/25/21 16:30 Urine Methadone Screen Negative (NEG=<300) 08/25/21 16:30 Ur Barbiturates Screen Negative (NEG=<200) 08/25/21 16:30 Ur Phencyclidine Scrn Negative (NEG=<25) 08/25/21 16:30 Ur Amphetamines Screen Negative (NEG=<1000) 08/25/21 16:30 U Benzodiazepines Scrn Positive (NEG=<200) A 08/25/21 16:30 Urine Cocaine Screen Negative (NEG=<300) 08/25/21 16:30 U Marijuana (THC) Screen Negative (NEG=<50) 08/25/21 16:30 SARS-CoV-2 (PCR) Negative (NEGATIVE) 08/25/21 14:40 Plan (1) Seizure: Status: Acute Plan: We will monitor the patient overnight for observation and give her benzodiazepines for any breakthrough seizures. I will also check a urine drug screen to make sure that she has been taking an illicit substance and she could be possibly from a fall causing her to have these symptoms. (2) Acute dehydration: Status: Acute Narrative Support Text: Improved but not normalized per her BUN and creatinine levels. Plan: IV hydration (3) Acute hyponatremia: Status: Acute Narrative Support Text: Hyponatremia slowly improving. Plan: Continue normal saline IV. Repeat CMP in the morning (4) Hypokalemia: Status: Acute Narrative Support Text: Patient remains hypokalemic despite receiving potassium. Plan: Potassium replacement protocol.
[2021-08-26] MEDS: KLOR-CON PO PRN (23:15)
[2021-08-27] MEDS: NS 1,000 ML IV 1,000 ML IV SCH (02:15)
[2021-08-27] MEDS: KLOR-CON PO PRN ×2 (02:50→08:35)
[2021-08-27] MEDS: MORPHINE SULFATE INJ 2 MG INJ IVP PRN ×3 (03:57→21:40)
[2021-08-27 06:28] LABS: BASOPHILS % (AUTO) 0.5 % (0.2-1.0); EOSINOPHILS # (AUTO) 0.2 x10^3/uL (0.0-0.2); HEMATOCRIT 38.6 % (36.0-47.0); LYMPHOCYTES # (AUTO) 1.9 X10^3/uL (1.3-2.9); LYMPHOCYTES % (AUTO) 20.7 % (21.0-51.0); MEAN CORPUSCULAR HGB CONC 36.2 g/dL (33.0-35.0); MEAN CORPUSCULAR VOLUME 82.7 fL (80.0-100.0); MEAN PLATELET VOLUME 9.9 fL (7.4-11.0); MONOCYTES % (AUTO) 11.3 % (0.0-13.0); NEUTROPHILS # (AUTO) 6.1 x10^3/uL (2.2-4.8); NEUTROPHILS % (AUTO) 65.5 % (42.0-75.0); RED BLOOD COUNT 4.67 X10^6/uL (3.5-5.4); WHITE BLOOD COUNT 9.3 X10^3/uL (3.6-10.0)
[2021-08-27 06:52] LABS: ALANINE AMINOTRANSFERASE 29 Units/L (12-78); ALBUMIN 3.2 g/dL (3.4-5.0); ALKALINE PHOSPHATASE 157 Units/L (46-116); ASPARTATE AMINO TRANSFERASE 18 Units/L (15-37); BLOOD UREA NITROGEN 17 mg/dL (7-18); CALCIUM 8.4 mg/dL (8.5-10.1); CARBON DIOXIDE 32.3 mmol/L (21-32); CHLORIDE 99 mmol/L (98-107); CREATININE 1.13 mg/dL (0.55-1.02); MAGNESIUM 1.8 mg/dL (1.7-2.9); SODIUM 138 mmol/L (136-145); TOTAL PROTEIN 6.2 g/dL (6.4-8.2); eGFR NON BLACK RACES 55 (>60)
[2021-08-27] MEDS: PROTONIX INJ 40 MG VIAL IVP SCH (08:35)
[2021-08-27] MEDS: NS + KCL 20 MEQ/L 1,000 ML IV SCH ×3 (11:07→20:31)
[2021-08-27] MEDS: MAGNESIUM SULFATE 1 GRAM/100 mL PREMIX 1 G/100 ML BAG IV PRN ×2 (17:03→18:03)
[2021-08-27] MEDS: K-DUR TAB 20 MEQ PO PRN (17:04)
--- NOTE | 2021-08-27 19:58 | PCM.PROG ---
Progress Note Progress Note for Day of Date of Exam: 08/27/21 Subjective Subjective: IS A 46 YEAR OLD PATIENT OF . SHE IS CURRENTLY OBSERVATION STATUS. SHE WAS ADMITTED ON 08/25/21 FOR TREATMENT OF ACUTE DEHYDRATION, ACUTE HYPONATREMIA, HYPOKALEMIA, AND SEIZURE-LIKE ACTIVITY. SHE HAS NOT HAD ANYMORE SEIZURE-LIKE ACTIVITY SINCE ADMISSION AND BRAIN CT WAS NEGATIVE FOR ACUTE INTRACRANIAL ABNORMALITIES. TODAY, SHE IS ALERT AND ORIENTED, LYING IN BED ON MORNING ROUNDS. SHE CONTINUES WITH COMPLAINTS OF GENERALIZED WEAKNESS THIS MORNING. ON EXAMINATION, HEART IS REGULAR IN RATE AND RHYTHM. BILATERAL LUNGS ARE CLEAR TO AUSCULTATION. ABDOMEN IS ROUND, SOFT, AND NON-TENDER WITH NORMAL BOWEL SOUNDS NOTED IN ALL QUADRANTS. NO UPPER OR LOWER EXTREMITY EDEMA IS NOTED. HER VITALS THIS MORNING ARE: 98.5-78-20-98%-107/64. LABS WERE OBTAINED. WBC 9.3, HGB 14.0, HCT 38.6, PLT COUNT 191, SODIUM 138, POTASISUM 2.8, CARBON DIOXIDE 32.3, BUN 17, CREATININE 1.13, CALCIUM 8.4, MAGNEISUM 1.8, ALK PHOS 157, TOTAL PROTEIN 6.2, ALBUMIN 3.2. SHE IS CURRENTLY RECEIVING NORMAL SALINE AT 125ML/HR, THE POTASSIUM AND MAGNESIUM PROTOCOLS, MORPHINE SULFATE 2-5MG IV Q3H PRN, ZOFRAN 4MG IV Q6H PRN, PROTONIX 40MG IV DAILY, AND PHENERGAN 25MG IM Q6H PRN. TODAY, WE WILL ADD POTASSIUM CHLORIDE 20MEQ TO EACH LITER OF IV FLUIDS. WE WILL CONTINUE TO RUN FLUIDS AT 125 ML/HR. OTHERWISE, WE WILL CONTINUE WITH CURRENT PLAN OF CARE. WE WILL FOLLOW-UP WITH AM LABS AND CONTINUE TO MONITOR. TIME SPENT ON CLINICAL ASSESSMENT, REVIEWING LABS AND IMAGING, DECISION MAKING, AND DOCUMENTATION GREATER THAN 45 MINUTES. Past Medical Family Social History Allergies: Allergies No Known Drug Allergies Allergy (Verified 02/14/21 10:22) Review of Systems ROS: No change since H&P Vital Signs and I&O's Vital Signs: Temperature 97.8 F Pulse Rate [Left Brachial] 89 Pulse Rate 107 Respiratory Rate 20 Blood Pressure [Left Arm] 113/71 Blood Pressure [Right Arm] 121/56 Blood Pressure 113/68 O2 Sat by Pulse Oximetry 94 Intake and Output: Intake & Output 08/25/21 08/26/21 08/27/21 08/28/21 11:59 11:59 11:59 11:59 Intake Total 1485 / 1485 3860 / 3860 360 / 360 Balance 1485 / 1485 3860 / 3860 360 / 360 Physical Exam Oriented: Normal, Time, Person and Place Eyes: Normal Ear: Normal Nose: Normal Throat: Normal Respiratory: Normal Cardiovascular: Normal : Normal Auscultation: Bowel Sounds: Normal Tenderness: Diffuse Skin: Normal Musculoskeletal: Normal Psychiatric: Normal Mood Description: Anxious Affect: Anxious Speech Pattern: Clear Laboratory and Diagnostics Result Diagrams: 08/27/21 05:29 08/27/21 10:50 Labs: Laboratory WBC 9.3 X10^3/uL (3.6-10.0) 08/27/21 05:29 RBC 4.67 X10^6/uL (3.5-5.4) 08/27/21 05:29 Hgb 14.0 g/dL (12.0-16.0) 08/27/21 05:29 Hct 38.6 % (36.0-47.0) 08/27/21 05:29 MCV 82.7 fL (80.0-100.0) 08/27/21 05:29 MCH 30.0 pg (27.0-34.0) 08/27/21 05:29 MCHC 36.2 g/dL (33.0-35.0) H 08/27/21 05:29 RDW 13.0 % (11.6-16.5) 08/27/21 05:29 Plt Count 191 X10^3/uL (150.0-450.0) 08/27/21 05:29 MPV 9.9 fL (7.4-11.0) 08/27/21 05:29 Neut % (Auto) 65.5 % (42.0-75.0) 08/27/21 05:29 Lymph % (Auto) 20.7 % (21.0-51.0) L 08/27/21 05:29 [place] % (Auto) 11.3 % (0.0-13.0) 08/27/21 05:29 Eos % (Auto) 2.0 % (0.9-2.9) 08/27/21 05:29 Baso % (Auto) 0.5 % (0.2-1.0) 08/27/21 05:29 Neut # (Auto) 6.1 x10^3/uL (2.2-4.8) H 08/27/21 05:29 Lymph # (Auto) 1.9 X10^3/uL (1.3-2.9) 08/27/21 05:29 [place] # (Auto) 1.0 x10^3/uL (0.3-0.8) H 08/27/21 05:29 Eos # (Auto) 0.2 x10^3/uL (0.0-0.2) 08/27/21 05:29 Baso # (Auto) 0.0 X10^3/uL (0.0-0.1) 08/27/21 05:29 Absolute Nucleated RBC 0.0 /100WBC 08/27/21 05:29 Sodium 138 mmol/L (136-145) 08/27/21 05:29 Corrected Sodium TNP 08/27/21 05:29 Potassium 3.3 mmol/L (3.5-5.1) L 08/27/21 10:50 Chloride 99 mmol/L (98-107) 08/27/21 05:29 Carbon Dioxide 32.3 mmol/L (21-32) H 08/27/21 05:29 BUN 17 mg/dL (7-18) 08/27/21 05:29 Creatinine 1.13 mg/dL (0.55-1.02) H 08/27/21 05:29 Est GFR (MDRD) Af Amer > 60 (>60) 08/27/21 05:29 Est GFR (MDRD) Non-Af 55 (>60) L 08/27/21 05:29 Glucose 96 mg/dL (65-99) 08/27/21 05:29 POC Glucose (mg/dL) 128 mg/dL (65-99) H 08/27/21 16:24 Calcium 8.4 mg/dL (8.5-10.1) L 08/27/21 05:29 Corrected Calcium 9.0 mg/dL (8.5-10.1) 08/27/21 05:29 Phosphorus 4.3 mg/dL (2.6-4.7) 08/25/21 12:22 Magnesium 1.8 mg/dL (1.7-2.9) 08/27/21 05:29 Total Bilirubin 0.70 mg/dL (0.2-1.0) 08/27/21 05:29 AST 18 Units/L (15-37) 08/27/21 05:29 ALT 29 Units/L (12-78) 08/27/21 05:29 Alkaline Phosphatase 157 Units/L (46-116) H 08/27/21 05:29 Total Protein 6.2 g/dL (6.4-8.2) L 08/27/21 05:29 Albumin 3.2 g/dL (3.4-5.0) L 08/27/21 05:29 Globulin 3.0 g/dL (2.5-4.5) 08/27/21 05:29 Albumin/Globulin Ratio 1.1 Ratio (1.1-2.1) 08/27/21 05:29 Specimen Type Clean catch urine 08/25/21 16:30 Urine Color Yellow (YELLOW) 08/25/21 16:30 Urine Appearance Clear (CLEAR) 08/25/21 16:30 Urine pH 6.0 (5.0 - 8.0) 08/25/21 16:30 Ur Specific [place] 1.015 (1.000-1.030) 08/25/21 16:30 Urine Protein 1+ (NEGATIVE) 08/25/21 16:30 Urine Glucose (UA) Negative (NEGATIVE) 08/25/21 16:30 Urine Ketones Negative (NEGATIVE) 08/25/21 16:30 Urine Blood 5+ (NEGATIVE) 08/25/21 16:30 Urine Nitrite Negative (NEGATIVE) 08/25/21 16:30 Urine Bilirubin Negative (NEGATIVE) 08/25/21 16:30 Urine Urobilinogen Normal (NORMAL) 08/25/21 16:30 Ur Leukocyte Esterase 1+ (NEGATIVE) 08/25/21 16:30 Urine RBC 5-10 /HPF (0-3) A 08/25/21 16:30 Urine WBC 0-2 /HPF (0-5) 08/25/21 16:30 Ur Squamous Epith Cells Moderate /HPF (NEGATIVE) 08/25/21 16:30 Amorphous Sediment Trace /HPF (NEGATIVE) 08/25/21 16:30 Urine Bacteria Trace /HPF (NEGATIVE) 08/25/21 16:30 Ur Culture Indicated? No/not indicated 08/25/21 16:30 Urine Opiates Screen Negative (NEG=<300) 08/25/21 16:30 Urine Methadone Screen Negative (NEG=<300) 08/25/21 16:30 Ur Barbiturates Screen Negative (NEG=<200) 08/25/21 16:30 Ur Phencyclidine Scrn Negative (NEG=<25) 08/25/21 16:30 Ur Amphetamines Screen Negative (NEG=<1000) 08/25/21 16:30 U Benzodiazepines Scrn Positive (NEG=<200) A 08/25/21 16:30 Urine Cocaine Screen Negative (NEG=<300) 08/25/21 16:30 U Marijuana (THC) Screen Negative (NEG=<50) 08/25/21 16:30 SARS-CoV-2 (PCR) Negative (NEGATIVE) 08/25/21 14:40 Plan (1) Acute dehydration: Status: Acute Plan: NORMAL SALINE WITH 20MEQ KCL AT 125 ML/HR (2) Acute hyponatremia: Status: Acute Plan: Continue normal saline IV. Repeat CMP in the morning (3) Hypokalemia: Status: Acute Plan: Potassium replacement protocol. (4) Seizure: Status: Acute Plan: We will monitor the patient overnight for observation and give her benzodiazepines for any breakthrough seizures.
[2021-08-28] MEDS: NS + KCL 20 MEQ/L 1,000 ML IV SCH (02:52)
[2021-08-28 05:51] LABS: BASOPHILS % (AUTO) 0.4 % (0.2-1.0); EOSINOPHILS # (AUTO) 0.1 x10^3/uL (0.0-0.2); EOSINOPHILS % (AUTO) 1.5 % (0.9-2.9); HEMATOCRIT 39.1 % (36.0-47.0); HEMOGLOBIN 13.8 g/dL (12.0-16.0); LYMPHOCYTES # (AUTO) 1.5 X10^3/uL (1.3-2.9); LYMPHOCYTES % (AUTO) 19.2 % (21.0-51.0); MEAN CORPUSCULAR HEMOGLOBIN 29.7 pg (27.0-34.0); MEAN CORPUSCULAR HGB CONC 35.3 g/dL (33.0-35.0); MEAN CORPUSCULAR VOLUME 84.1 fL (80.0-100.0); MEAN PLATELET VOLUME 10.1 fL (7.4-11.0); MONOCYTES # (AUTO) 0.7 x10^3/uL (0.3-0.8); MONOCYTES % (AUTO) 8.6 % (0.0-13.0); NEUTROPHILS # (AUTO) 5.4 x10^3/uL (2.2-4.8); NEUTROPHILS % (AUTO) 70.3 % (42.0-75.0); RED BLOOD COUNT 4.65 X10^6/uL (3.5-5.4); WHITE BLOOD COUNT 7.8 X10^3/uL (3.6-10.0)
[2021-08-28 06:14] LABS: ALANINE AMINOTRANSFERASE 24 Units/L (12-78); ALBUMIN 3.2 g/dL (3.4-5.0); ALKALINE PHOSPHATASE 146 Units/L (46-116); ASPARTATE AMINO TRANSFERASE 16 Units/L (15-37); BLOOD UREA NITROGEN 8 mg/dL (7-18); CALCIUM 8.7 mg/dL (8.5-10.1); CARBON DIOXIDE 26.6 mmol/L (21-32); CHLORIDE 105 mmol/L (98-107); COR CA(FOR HYPOALB) 9.3 mg/dL (8.5-10.1); CREATININE 0.86 mg/dL (0.55-1.02); MAGNESIUM 1.8 mg/dL (1.7-2.9); SODIUM 140 mmol/L (136-145); TOTAL PROTEIN 6.4 g/dL (6.4-8.2); eGFR NON BLACK RACES > 60 (>60)
[2021-08-28] MEDS: K-DUR TAB 20 MEQ PO PRN (06:41)
[2021-08-28] MEDS: MAGNESIUM SULFATE 1 GRAM/100 mL PREMIX 1 G/100 ML BAG IV PRN (06:42)
[2021-08-28] MEDS: PROTONIX INJ 40 MG VIAL IVP SCH (09:40)
[2021-08-28 10:40] VITALS: BP 132/68
== END 2021-08-28 10:15 | disposition home or self-care (01) ==
LOC: ER 12:03 → MED/SURG 12:03
PROVIDERS: ADMIT Internal Medicine; ATTEND Internal Medicine
DX: R94.31 Abnormal electrocardiogram [ECG] [EKG]; F19.90 Other psychoactive substance use, unspecified, uncomplicated; E87.1 Hypo-osmolality and hyponatremia; R94.4 Abnormal results of kidney function studies; Z20.822 Contact with and (suspected) exposure to COVID-19; E86.0 Dehydration; E87.6 Hypokalemia; R53.1 Weakness; E03.8 Other specified hypothyroidism; G40.89 Other seizures